=== PATIENT | female | born 1985 | race Caucasian/White ===

== ENCOUNTER 2017-02-28 08:58 | Emergency (ER) | payer BC ==
[2017-02-28 09:14] VITALS: BP 120/70
--- NOTE | 2017-02-28 09:47 | ED ---
Upper Extremity Pain - HPI Summary HPI Summary: 31 yr old female with left wrist pain. No injury, no falls. Pain is over the lateral volar wrist and goes into the left base of thumb. Denies fever, chills redness. She has had pain for over a week. She denies other complaints. Pain 6/10 and worse with pincher grasp with radiation to the thumb and 2nd digit. - History of Current Complaint Chief Complaint: UCUpperExtremity Stated Complaint: LEFT WRIST Time Seen by Provider: 02/28/17 09:05 Hx Last Menstrual Period: unknown, irregular cycle - Allergies/Home Medications Allergies/Adverse Reactions: Allergies Allergy/AdvReac Type Severity Reaction Status Date / Time Aspirin Allergy Severe Bleeding Verified 02/28/17 09:14 Penicillin G Allergy Intermediate Bleeding Verified 02/28/17 09:14 Mustard Seed Allergy Tongue Verified 02/28/17 09:14 Swelling, Itching Pineapple Allergy tongue Verified 02/28/17 09:14 Swelling, Itching Promethazine [From Phenergan] AdvReac Severe Hallucinati Verified 02/28/17 09:14 ons Cold Allergy Hives Uncoded 02/28/17 09:14 Home Medications: Home Medications Escitalopram Oxalate [Lexapro 10 mg] 10 mg PO DAILY 02/28/17 [History Confirmed 02/28/17] PMH/Surg Hx/FS Hx/Imm Hx Psychiatric History: Reports: Hx Anxiety - Surgical History Surgery Procedure, Year, and Place: T&A, 07/14/13 polypectomy, D&C x2 Infectious Disease History: No Infectious Disease History: Denies: Traveled Outside the [place] in Last 30 Days - Family History Known Family History: Positive: None, Hypertension Negative: Unknown, Cardiac Disease, Diabetes - Social History Occupation: Unemployed Alcohol Use: Rare Substance Use Type: Reports: None Smoking Status (MU): Never Smoked Tobacco Review of Systems Constitutional: Negative Positive: Other - left wrist pain All Other Systems Reviewed And Are Negative: Yes Physical Exam Triage Information Reviewed: Yes Vital Signs On Initial Exam: Initial Vitals Temp Pulse Resp BP Pulse Ox 97.9 F 72 18 120/70 100 02/28/17 09:08 02/28/17 09:08 02/28/17 09:08 02/28/17 09:08 02/28/17 09:08 Vital Signs Reviewed: Yes Appearance: Positive: Well-Appearing, No Pain Distress Skin: Positive: Warm, Skin Color Reflects Adequate Perfusion Head/Face: Positive: Normal Head/Face Inspection Eyes: Positive: EOMI, ROMÁN ENT: Positive: Normal ENT inspection Neck: Positive: Nontender Respiratory/Lung Sounds: Positive: Clear to Auscultation, Breath Sounds Present Cardiovascular: Positive: RRR. Negative: Murmur Abdomen Description: Positive: Nontender Musculoskeletal: Positive: Strength/ROM Intact, Other - mild STS swelling/ hardness lateral volar wrist like a ganglion. No erythema. No bruise, no effuison. No snuff box tenderness. Neuro vasc intact left hand all digits. Neurological: Positive: Sensory/Motor Intact, Alert, Oriented to Person Place, Time, CN Intact II-III Diagnostics - Vital Signs Vital Signs Temp Pulse Resp BP Pulse Ox 02/28/17 09:08 97.9 F 72 18 120/70 100 - Laboratory Lab Statement: Any lab studies that have been ordered have been reviewed, and results considered in the medical decision making process. - Radiology wrist left Xray Interpretation: No Acute Changes Radiology Interpretation Completed By: Radiologist Course/Dx - Course Course Of Treatment: 31 yr old with left wrist pain. No trauma. Will give thumb spika by nurses. Fu with Hand - Diagnoses Provider Diagnoses: Wrist pain, left Discharge - Discharge Plan Condition: Good Disposition: HOME Patient Education Materials: Wrist Injury (ED) Referrals: Sherri Frye [Primary Care Provider] - 3 Days
--- NOTE | 2017-02-28 10:09 | RAD ---
Indication: Left wrist pain 3 views of the wrist demonstrates no fracture. No other bone or joint abnormality is identified. IMPRESSION: NO FRACTURE OF THE WRIST IS NOTED.
== END 2017-02-28 10:32 | disposition home or self-care (01) ==
LOC: UCCORT 08:58
DX: M25.532 Pain in left wrist (principal); Z88.6 Allergy status to analgesic agent; Z88.0 Allergy status to penicillin; F41.9 Anxiety disorder, unspecified
CPT/HCPCS: 99212; G0463

== ENCOUNTER 2017-05-11 06:04 | Day surgery (SDC) | payer BC, MEDICAID ==
[~2017-05-11 06:04] MED LIST: Buffered Lidocaine 0.9% SYRIN* 5 ML/SYR SYRINGE INTRADERM ONE
[2017-05-11] MEDS ORDERED: Clindamycin 900 MG IVPREMIX(* 900 MG/50 ML SDV IV ONE ×2 (06:50)
[2017-05-11] MEDS ORDERED: Lidocaine 1% INJ* 10 MG/ML 30 ML SDV ONE (07:09)
[2017-05-11] MEDS ORDERED: Bupivacaine 0.25% SDV* 30 ML ONE ×2 (07:09)
[2017-05-11] MEDS ORDERED: fentaNYL* 50 MCG/ML 2 ML VIAL (100 MCG VIAL) ONE ×6 (07:14→09:26)
[2017-05-11] MEDS ORDERED: Midazolam* 1 MG/ML 2 ML VIAL (2 MG) ONE ×2 (07:14)
[2017-05-11] MEDS ORDERED: Dexamethasone IV* 4 MG/ML 1 ML (4 MG) ONE ×2 (08:14)
[2017-05-11] MEDS ORDERED: Famotidine IV* 10 MG/ML 2 ML (20 mg) ONE ×2 (08:14)
[2017-05-11] MEDS ORDERED: Ondansetron INJ* 2 MG/ML VIAL ONE ×2 (08:14)
[2017-05-11] MEDS ORDERED: Propofol* 10 MG/ML 20 ML BTL IV PUSH ONE ×2 (08:14)
[2017-05-11] MEDS ORDERED: Ketorolac INJ* 30 MG/ML 1 ML VIAL ONE ×2 (08:14)
[2017-05-11] MEDS ORDERED: Acetaminophen TAB* 325 MG PO PRN (08:29)
[2017-05-11] MEDS ORDERED: Levalbuterol 0.63MG/3ML NEB* UNIT OF USE INH PRN (08:29)
[2017-05-11] MEDS ORDERED: diPHENhydraMINE IV* 50 MG/ML 1 ml VIAL (BENADRYL) IV PRN (08:29)
[2017-05-11] MEDS ORDERED: Naloxone* 0.4 MG/ML 1 ML VIAL IV PRN (08:29)
[2017-05-11] MEDS ORDERED: Desflurane* 240 ML INH ONE (08:37)
[2017-05-11] MEDS ORDERED: Labetalol IV* 5 MG/ML 20 ML VIAL ONE ×2 (08:51)
[2017-05-11] MEDS: fentaNYL* 50 MCG/ML 2 ML VIAL (100 MCG VIAL) IV PRN ×4 (09:27→09:45)
[2017-05-11] MEDS ORDERED: HYDROcodone/ACETAMIN 5-325 MG* 1 TAB ONE ×2 (09:38)
[2017-05-11] MEDS ORDERED: DiMENhydriNATE IV* 50 MG/ML VIAL ONE (10:10)
[2017-05-11] MEDS ORDERED: diPHENhydraMINE IV* 50 MG/ML 1 ml VIAL (BENADRYL) ONE ×2 (10:17)
[2017-05-11 11:26] VITALS: BP 144/68
--- NOTE | 2017-05-12 14:33 | OP ---
DATE OF OPERATION: 05/11/17 - [facility] DATE OF : 89 SURGEON: Yunier Mata MD. BARGE CAPTAIN: ALVERTO Goldsmith. An assistant women's soccer coach was needed for the entirety of the procedure to aid in positioning of the arm and retraction. ANESTHESIOLOGIST: Dr. Ma. ANESTHESIA: General. PRE-OP DIAGNOSES: 1. Left carpal tunnel syndrome. 2. Left cubital tunnel syndrome. 3. Left de Quervain's tendonitis. POST-OP DIAGNOSES: 1. Left carpal tunnel syndrome. 2. Left cubital tunnel syndrome. 3. Left de Quervain's tendonitis. OPERATIVE PROCEDURE: 1. Left carpal tunnel release. 2. Left de Quervain's release. 3. Left in situ cubital tunnel release. INDICATIONS: Leisa is having extensive numbness and tingling. The symptoms were progressing. Additionally, she was having very severe de Quervain's disease. It had gotten better after an injection, but then recurred. She wanted to do a de Quervain's release. We had talked at length about whether or not to do the nerve releases at the same time. She said the numbness and tingling were just being progressive and she wanted to see if she could get some relief and improvement in the neurogenic-type pain. We talked about risks and benefits. She had wanted to proceed. ESTIMATED BLOOD LOSS: 5 mL. COMPLICATIONS: None. FINDINGS: As expected. DESCRIPTION OF PROCEDURE: Leisa was seen in the preoperative holding area. The correct site, side and procedure were identified. We came back to the operating room and the arm was prepped and draped in the usual fashion. A time- out was performed. I exsanguinated the arm with the Esmarch and the tourniquet was inflated to 250 mmHg. I made a 2 to 3 cm incision in the standard location for an open carpal tunnel release. Dissection was carried down through the subcutaneous tissue and the palmar fascia. The transverse carpal ligament was released just off the radial aspect of the hook of the hamate. Once the release was completed distally, I came proximally and placed a Nasrin retractor and under direct visualization, released the remainder of the transverse carpal ligament and distal antebrachial fascia to a level of several centimeters proximal to the wrist flexion crease. At this point, the release was complete and there was absolutely no compression on the nerves, so we irrigated out the wound. The skin was closed with 4-0 nylon suture. I then made a 2 cm transverse incision just proximal to the radial styloid. Dissection was carried down and the soft tissue was released off the tendon sheath bluntly. Ragnell retractors were placed. The first dorsal compartment tendon sheath was released just opposite its dorsal margin. No accessory compartment was present. The release was extended proximally and distally. It was very tight. Once the release was complete and there was no compression on the tendons, I irrigated out the wound. The skin was closed with 4-0 Monocryl suture. I then made a curvilinear incision centered over the Walker ligament on the posteromedial aspect of the elbow. Dissection was carried down through the subcutaneous tissue taking care to preserve the medial antebrachial cutaneous nerve. On the proximal aspect of the cubital tunnel, I exposed the ulnar nerve. An appendiceal retractor was placed proximally and under direct visualization, the soft tissue overlying the ulnar nerve was released past the arcade of [place]. I then came distally and released the Walker ligament and released the superficial FCU fascia. I split the two ends of the FCU and released the deep subfascial layer of the FCU. The nerve at this point was nicely compressed throughout the entirety of its course in the cubital tunnel. There was no subluxation of the nerve noted. Everything was looking good, so we obtained hemostasis with the Bovie. The subcutaneous tissue was reapproximated with 3-0 Vicryl suture. Skin was closed with 4-0 Monocryl suture and Steri-Strips. All of the operative areas were infiltrated with 0.25% plain Marcaine. The wounds were dressed with Xeroform, 4x4's, sterile Webril, and ABD at the elbow and Winston bandages. She was woken up and taken to the recovery room in stable condition. [id number]/[facility] #: [id number] LEIA
== END 2017-05-11 11:29 | disposition home or self-care (01) ==
LOC: OR 06:04
PROVIDERS: ATTEND Orthopaedic Surgery Hand Surgery
DX: G56.02 Carpal tunnel syndrome, left upper limb (principal); G56.22 Lesion of ulnar nerve, left upper limb; M65.4 Radial styloid tenosynovitis [de Quervain]; F41.8 Other specified anxiety disorders; Z68.41 Body mass index [BMI] 40.0-44.9, adult
CPT/HCPCS: 81025; J1100; J1200; J1240; J1885; J2250; J2405; J2704; J3010

== ENCOUNTER 2017-09-02 17:09 | Emergency (ER) | payer MEDICAID, OTHER ==
[2017-09-02 17:48] VITALS: BP 131/82
--- NOTE | 2017-09-02 18:25 | UC ---
Lower Extremity/Ankle HPI - HPI Summary HPI Summary: Pt c/o right lateral mid foot pain s/p walking on uneven pavement at home and inverting right foot 4 days ago. - History of Current Complaint Hx Obtained From: Patient Hx Last Menstrual Period: 05/07/17-irregular menses d/t Complex endometrial hyperplasia ?: No Onset/Duration: Sudden Onset, Lasting Days, Still Present Severity Initially: Moderate Severity Currently: Moderate Pain Intensity: 5 Aggravating Factor(s): Ambulation Alleviating Factor(s): Rest Able to Bear Weight: Yes - Risk Factors Gout Risk Factors: Obesity DVT Risk Factors: Negative Septic Arthritis Risk Factor: Negative <Pia Nova NP - Last Filed: 09/02/17 18:51> <Tamir Douglas - Last Filed: 09/02/17 20:42> - History of Current Complaint Chief Complaint: UCLowerExtremity Stated Complaint: RIGHT ANKLE INJURY Time Seen by Provider: 09/02/17 17:54 - Allergies/Home Medications Allergies/Adverse Reactions: Allergies Allergy/AdvReac Type Severity Reaction Status Date / Time aspirin Allergy Severe Bleeding Verified 09/02/17 17:42 Penicillins Allergy Severe Bleeding Verified 09/02/17 17:42 pineapple Allergy Severe tongue Verified 09/02/17 17:42 swelling, itching promethazine Allergy Severe Hallucinati Verified 09/02/17 17:42 ons Cold Allergy Severe Hives Uncoded 09/02/17 17:42 mustard seed Allergy Severe tongue Uncoded 09/02/17 17:42 swelling, itching PMH/Surg Hx/FS Hx/Imm Hx Previously Healthy: Yes - Surgical History Surgical History: Yes Surgery Procedure, Year, and Place: T&A, 07/14/13 polypectomy, D&C x3. LEFT wrist /LEFT elbow/LEFT carpal tunnel - Family History Known Family History: Positive: None, Hypertension Negative: Unknown, Cardiac Disease, Diabetes - Social History Occupation: Employed Full-time Lives: With Family Alcohol Use: Rare Substance Use Type: None Smoking Status (MU): Never Smoked Tobacco Have You Smoked in the Last Year: No Household Exposure Type: Cigarettes - Immunization History Most Recent Influenza Vaccination: Not the 2014/2015 Season <Pia Nova NP - Last Filed: 09/02/17 18:51> Review of Systems Constitutional: Negative Skin: Negative Eyes: Negative ENT: Negative Respiratory: Negative Cardiovascular: Negative Gastrointestinal: Negative Genitourinary: Negative Motor: Negative Neurovascular: Negative Musculoskeletal: Arthralgia - right lateral mid foot Neurological: Negative Psychological: Negative Is Patient Immunocompromised?: No All Other Systems Reviewed And Are Negative: Yes <Pia Nova NP Last Filed: 09/02/17 18:51> Physical Exam Triage Information Reviewed: Yes Appearance: Well-Appearing Vital Signs: Initial Vital Signs Temp 98.1 F 09/02/17 17:43 Pulse 82 09/02/17 17:43 Resp 16 09/02/17 17:43 BP 131/82 09/02/17 17:43 Pulse Ox 98 09/02/17 17:43 Vital Signs Reviewed: Yes Eye Exam: Normal ENT Exam: Normal ENT: Positive: Hearing grossly normal Respiratory Exam: Normal Respiratory: Positive: No respiratory distress Musculoskeletal: Positive: Other: - c/o pain with light touch to right mid lateral foot Neurological Exam: Normal Psychological Exam: Normal Skin Exam: Normal <Pia Nova NP - Last Filed: 09/02/17 18:51> Vital Signs: Initial Vital Signs Temp 98.1 F 09/02/17 17:43 Pulse 82 09/02/17 17:43 Resp 16 09/02/17 17:43 BP 131/82 09/02/17 17:43 Pulse Ox 98 09/02/17 17:43 <Tamir Douglas - Last Filed: 09/02/17 20:42> Diagnostics - Radiology No standard instances Radiology Interpretation Completed By: Radiologist - IMPRESSION: NO ACUTE FRACTURE. <Pia Nvoa NP Last Filed: 09/02/17 18:51> Lower Extremity Course/Dx - Differential Dx/Diagnosis Differential Diagnosis/HQI/PQRI: Fracture (Closed), Sprain, Strain Provider Diagnoses: right ankle sprain. right foot contusion <Pia Nova NP Last Filed: 09/02/17 18:51> Discharge - Sign-Out/Discharge Documenting (check all that apply): Discharge/Admit/Transfer - Billing Disposition and Condition Condition: STABLE Disposition: Home <Pia Nova NP Last Filed: 09/02/17 18:51> - Billing Disposition and Condition Condition: STABLE Disposition: Home <Tamir Douglas - Last Filed: 09/02/17 20:42> - Discharge Plan Condition: Stable Disposition: HOME Patient Education Materials: Ankle Sprain (ED), Foot Contusion (ED) Referrals: Dari Cid PA [Primary Care Provider] - If Needed Leonid Montero MD [Medical Doctor] - If Needed Additional Instructions: Per institutional requirements, I have reviewed the chart, however, I was not consulted specifically or made aware of this patient by the above midlevel provider. I did not personally evaluate, interact with , or disposition this patient.
--- NOTE | 2017-09-02 18:41 | RAD ---
INDICATION: Right ankle pain COMPARISON: None TECHNIQUE: AP, lateral, and oblique views were obtained. FINDINGS: There is no acute fracture or dislocation. There is lateral soft tissue swelling. There is an Achilles calcaneal spur. IMPRESSION: NO ACUTE FRACTURE.
== END 2017-09-02 18:53 | disposition home or self-care (01) ==
LOC: UCCORT 17:09
DX: S93.401A Sprain of unspecified ligament of right ankle, initial encounter (principal); S90.31XA Contusion of right foot, initial encounter; X50.0XXA Overexertion from strenuous movement or load, initial encounter; Y93.01 Activity, walking, marching and hiking; Y92.009 Unspecified place in unspecified non-institutional (private) residence as the place of occurrence of the external cause; Z88.0 Allergy status to penicillin; Z88.8 Allergy status to other drugs, medicaments and biological substances
CPT/HCPCS: 99211; G0463

== ENCOUNTER 2018-05-11 18:04 | Emergency (ER) | payer OTHER ==
[2018-05-11 19:10] VITALS: BP 123/81
--- NOTE | 2018-05-11 19:43 | UC ---
Respiratory Complaint HPI - HPI Summary HPI Summary: 32 yo female with the onset of f/c, nasal congestion,post nasal drip , laryngitis and cough yesterday. Some fatigue and myalgias no cp or sob - History of Current Complaint Chief Complaint: UCGeneralIllness Stated Complaint: SORE THROAT,COUGH,FEVER,BODY ACHES Time Seen by Provider: 05/11/18 18:17 Hx Obtained From: Patient Hx Last Menstrual Period: irregular Onset/Duration: Gradual Onset Severity Initially: Moderate Severity Currently: Moderate Pain Intensity: 7 Pain Scale Used: 0-10 Numeric Character: Cough: Nonproductive Aggravating Factors: Nothing Alleviating Factors: Nothing Associated Signs And Symptoms: Positive: Edema - Allergies/Home Medications Allergies/Adverse Reactions: Allergies Allergy/AdvReac Type Severity Reaction Status Date / Time aspirin Allergy Severe Bleeding Verified 05/11/18 19:07 Penicillins Allergy Severe Bleeding Verified 05/11/18 19:07 pineapple Allergy Severe tongue Verified 05/11/18 19:07 swelling, itching promethazine Allergy Severe Hallucinati Verified 05/11/18 19:07 ons Cold Allergy Severe Hives Uncoded 05/11/18 19:07 mustard seed Allergy Severe tongue Uncoded 05/11/18 19:07 swelling, itching Home Medications: Home Medications Albuterol HFA INHALER* [Ventolin HFA Inhaler*] 1 - 2 puff INH Q4H PRN 05/11/18 [ History Confirmed 05/11/18] PMH/Surg Hx/FS Hx/Imm Hx Previously Healthy: Yes - Surgical History Surgical History: Yes Surgery Procedure, Year, and Place: T&A, 07/14/13 polypectomy, D&C x3. LEFT wrist /LEFT elbow/LEFT carpal tunnel - Family History Known Family History: Positive: None, Hypertension Negative: Unknown, Cardiac Disease, Diabetes - Social History Alcohol Use: Rare Substance Use Type: None Smoking Status (MU): Never Smoked Tobacco Have You Smoked in the Last Year: No Household Exposure Type: Cigarettes - Immunization History Most Recent Influenza Vaccination: Not the Season Review of Systems All Other Systems Reviewed And Are Negative: Yes Constitutional: Positive: Fever, Chills, Fatigue Skin: Positive: Negative Eyes: Positive: Negative ENT: Positive: Sore Throat, Nasal Discharge, Sinus Congestion, Sinus Pain/ Tenderness Respiratory: Positive: Cough Cardiovascular: Positive: Negative Gastrointestinal: Positive: Negative Genitourinary: Positive: Negative Motor: Positive: Negative Neurovascular: Positive: Negative Musculoskeletal: Positive: Myalgia Neurological: Positive: Headache Psychological: Positive: Negative Physical Exam Triage Information Reviewed: Yes Appearance: Well-Appearing, No Pain Distress, Well-Nourished Vital Signs: Initial Vital Signs Temp 97.3 F 05/11/18 19:06 Pulse 88 05/11/18 19:06 Resp 17 05/11/18 19:06 BP 123/81 05/11/18 19:06 Pulse Ox 99 05/11/18 19:06 Vital Signs Reviewed: Yes Eyes: Positive: Conjunctiva Clear ENT: Positive: Hearing grossly normal, Nasal congestion, Nasal drainage, TMs normal, Hoarse voice, Uvula midline. Negative: Tonsillar swelling, Tonsillar exudate, Trismus, Muffled voice, Sinus tenderness Neck: Positive: Supple, Nontender, No Lymphadenopathy Respiratory: Positive: Lungs clear, Normal breath sounds, No respiratory distress, No accessory muscle use Cardiovascular: Positive: RRR Musculoskeletal: Positive: ROM Intact, No Edema Neurological: Positive: Alert Psychological Exam: Normal Skin Exam: Normal Respiratory Course/Dx - Course Course Of Treatment: flu negative - Differential Dx/Diagnosis Provider Diagnosis: Viral URI with cough Discharge - Sign-Out/Discharge Documenting (check all that apply): Patient Departure All imaging exams completed and their final reports reviewed: No Studies - Discharge Plan Condition: Stable Disposition: HOME Prescriptions: Benzonatate CAP* [Tessalon CAP*] 100 - 200 mg PO TID PRN #28 cap PRN Reason: Cough Fluticasone NASAL SPRAY 50MCG* [Flonase NASAL SPRAY 50MCG*] 2 spray BOTH NARES BID #1 btl Patient Education Materials: Upper Respiratory Infection (ED) Forms: *Work Release Referrals: Dari Cid PA [Primary Care Provider] - 3 Days (if not better) Additional Instructions: flu negative - Billing Disposition and Condition Condition: STABLE Disposition: Home
[2018-05-11 19:49] LABS: Influenza A Molecular NEGATIVE (Negative); Influenza B Molecular NEGATIVE (Negative)
== END 2018-05-11 20:01 | disposition home or self-care (01) ==
LOC: UCCORT 18:04
DX: J06.9 Acute upper respiratory infection, unspecified (principal); R05 Cough; Z88.8 Allergy status to other drugs, medicaments and biological substances; Z88.0 Allergy status to penicillin; Z91.018 Allergy to other foods; Z91.09 Other allergy status, other than to drugs and biological substances
CPT/HCPCS: 99212; G0463

== ENCOUNTER 2018-05-21 15:17 | Emergency (ER) | payer OTHER ==
--- OUTSIDE RECORDS SUMMARY | 2018-05-21 15:43 | XMS REPORT | Continuity of Care Document ---
:1985 External Reference #:[id number] Author Name Dari Cid PA Address [address] [place] [address] Care Team Providers Name Role Phone Giovani DO Davin Care Team Information Practicing Md Anesthesiologist Unavailable Payers Date Identification Numbers Payment Provider Subscriber Policy Number: [id number] Jorge Pollard Leisa Blackburn PayID: [id number] [address] [place] [address] Advance Directives Description No Information Available Problems Date Description Provider Status Onset: 05/22/2012 Allergic rhinitis Sherri Valdivia, BEADWORKER Active Onset: 05/22/2012 Depressive disorder Sherri Valdivia, BEADWORKER Active Onset: 11/06/2010 Obesity Sherri Valdivia BEADWORKER Active Family History Date Family Member(s) Observation Comments Father Cancer, Skin BCC Mother Non Contributory Mother Thyroid Disease First Sister Non Contributory Paternal Grandfather Heart Disease Paternal Grandfather Stroke Paternal Grandmother Glaucoma Paternal Grandmother Cancer, Ovarian Maternal Grandfather Cancer, Prostate Maternal Grandfather Leukemia Maternal Grandfather Diabetes, Adult Non Insulin Dependent Diabetes. Maternal Grandmother Cancer, Breast Alive in 90s, dx in 40s?. Maternal Grandmother Dementia Paternal Uncles Mental Illness Social History Type Date Description Comments Sex Unknown Education Highest level completed, 2 years of college Marital Status Same sex marriage. Occupation [employer] Hobbies Softball Hobbies Horseback Riding Tobacco Use Start: Unknown Never Smoked Cigarettes ETOH Use Denies alcohol use Recreational Drug Use Never Used Drugs Currently Active Patient is currently with sexually active Allergies, Adverse Reactions, Alerts Date Description Reaction Status Severity Comments 06/07/2008 Mustard Active 06/07/2008 Pineapple Active 05/12/2014 Penicillin Active 05/15/2014 Aspirin BLEEDING Active 05/15/2014 Cold HIVES IN AREA OF COLD JOSE Active 07/28/2017 Phenergan Holusination Active Severe Medications Medication Date Status Form Strength Qnty SIG Indications Ordering Provider Azithromycin 05/14 Active Tablets 250mg 6tabs 2 tablets J20.9 [place] by mouth Davin, on day 1 DO then 1 tablet on days 2-5 Prednisone 05/14 Active Tablets 20mg 10tab 2 tablets J20.9 Mat[place] s by mouth Davin, for 5 days DO Levocetirizine 04/05 Active Tablets 5mg 30tab 1 by mouth L50.2 [place], Dihydrochloride s every day DO Davin Ventolin HFA 04/05 Active Aerosol 108(90Bas 8gm 2 puffs J45.20 Matute e) every 4-6 Davin, mcg/Act hours as DO needed for cough, wheezing, shortness of breath Flovent HFA 04/05 Active Aerosol 44mcg/Act 10.60 2 puffs J45.20 [place] 0gm twice Davin, daily DO Tylenol 00 Active Tablets 325mg 2 tabs 4 Unknown /0000 times daily as needed Venlafaxine HCL 00 Active Caps ER 75mg 1 by mouth Unknown ER /0000 24HR every day Trazodone HCL 00 Active Tablets 50mg 1 by mouth Unknown /0000 every night at bedtime Flovent Diskus 04/05 Hx Aerosol 100mcg/Bl 28uni 1 puff J45.20 Matute ist ts twice Davin, - daily DO 04/05 Sulfacetamide 10/29 Hx Solution 10-0.23% 5ml 2 drops H10.31 Matute, Sodium/Prednis into RIGHT Dav[place]ica Sodium - eye three DO Phosphate 04/05 times daily for 7 days Naproxen 07/28 Hx Tablets 500mg 30tab 1 tablet M25.571 [place] s by mouth Davin, - twice DO 04/05 daily with food Ondansetron HCL 09/06 Hx Tablets 4mg 12tab 3 Times A s Day as - Needed as 07/07 needed for Nausea Naproxen Sodium 01/23 Hx Tablets 550mg 60tab 1 by mouth S92.535A s every 12 a, - hours for Sherri, 07/07 2 weeks then as needed No Active 05/15 Hx Unknown - 05/24 Naproxen Sodium 11/25 Hx Tablets 550mg 60tab one po Digiovann s Q12H prn a, - for pain, Sherri, 05/15 take with food Cetirizine HCL 11/25 Hx Tablets 10mg one po Digiovan daily at a, - hs prn Sherri, 05/15 Wellbutrin XL 04/18 Hx Tablets ER 150mg 30tab 1 daily 24HR s a, - Sherri, 05/15 Junel Fe 1.5/30 00/00 Hx Tablets 1.5/30 Unknown /0000 - 05/15 Nasonex 00 Hx Suspension 50mcg/Act 1unit 1 sprays Unknown /0000 s each - nostril 05/15 Immunizations CPT Code Status Date Vaccine Reaction Lot # [id number] Given 12/28/2012 HPV Vaccine (Gardasil) 3 Dose Schedule 49018 Given 12/17/2010 Tdap (Adacel) Ages 7 And Above Only BOOSTRIX 90344 Given 10/24/2005 Menactra/Menveo Meningococcal Vaccine 48008 Given 12/17/2001 DTaP Immunization 7 Yrs & Younger 21003 Given 10/26/1999 Hepatitis B Vac Ped/Adolescent 3 Dose Schedule 17880 Given 05/31/1999 Hepatitis B Vac Ped/Adolescent 3 Dose Schedule 20305 Given 05/01/1999 Hepatitis B Vac Ped/Adolescent 3 Dose Schedule 34080 Given 09/12/1992 Oral Poliovirus Immunization 37058 Given 09/12/1992 MMR Virus Immunization 12632 Given 09/12/1992 DTaP Immunization 7 Yrs & Younger 91369 Given 09/12/1992 Hib HbOC Conjugate 4 Dose Schedule 96351 Given 02/18/1989 Oral Poliovirus Immunization 29987 Given 02/18/1989 DTaP Immunization 7 Yrs & Younger 48367 Given 02/18/1989 Hib HbOC Conjugate 4 Dose Schedule 30421 Given 11/19/1988 MMR Virus Immunization 41640 Given 1987 Oral Poliovirus Immunization 07852 Given 1987 DTaP Immunization 7 Yrs & Younger 18147 Given 1987 Oral Poliovirus Immunization 54879 Refused 04/05/2018 Influenza Vac, Quadrivalent, Split, 0.5mL Dosage, Im Use Vital Signs Date Vital Result Comment 05/14/2018 8:58am Body Temperature 97.7 F Apap This Am Weight 248.00 lb Heart Rate 72 /min BP Systolic 130 mmHg BP Diastolic 72 mmHg Respiratory Rate 18 /min Height 63.2 inches 5'3.20" O2 % BldC Oximetry 9899 % BMI (Body Mass Index) 43.6 kg/m2 04/05/2018 4:11pm Body Temperature 97.6 F Weight 250.00 lb Heart Rate 84 /min BP Systolic 122 mmHg BP Diastolic 78 mmHg Respiratory Rate 18 /min Height 63.2 inches 5'3.20" O2 % BldC Oximetry 99 % BMI (Body Mass Index) 44.0 kg/m2 10/29/2017 10:37am Body Temperature 98.2 F Weight 250.00 lb Heart Rate 70 /min BP Systolic 124 mmHg BP Diastolic 78 mmHg Respiratory Rate 18 /min Height 63.2 inches 5'3.20" BMI (Body Mass Index) 44.0 kg/m2 07/28/2017 8:45am Heart Rate 76 /min BP Systolic 118 mmHg L/LG BP Diastolic 78 mmHg L/LG Respiratory Rate 20 /min Height 63.2 inches 5'3.20" 01/23/2015 8:37am Weight 230.00 lb Heart Rate 74 /min BP Systolic 116 mmHg BP Diastolic 68 mmHg Respiratory Rate 18 /min Height 62.74 inches 5'2.74" 05/21 BMI (Body Mass Index) 41.1 kg/m2 05/24/2014 3:12pm Weight 227.31 lb Heart Rate 72 /min BP Systolic 122 mmHg BP Diastolic 70 mmHg Respiratory Rate 18 /min Height 62.74 inches 5'2.74" 05/21 BMI (Body Mass Index) 40.6 kg/m2 05/15/2014 3:26pm Weight 224.38 lb Heart Rate 74 /min BP Systolic 126 mmHg BP Diastolic 74 mmHg Respiratory Rate 18 /min Height 62.74 inches 5'2.74" 05/21 BMI (Body Mass Index) 40.1 kg/m2 Results Test Date Facility Test Result H/L Range Note Hemoglobin A1c 09/02/2017 [facility] Hemoglobin A1c 6.0 % High 4.1-5.9 Estimated Average Glucose Calc 126 mg/dL 71-140 Comprehensive Met Panel-[facility]G 09/02/2017 [facility] Sodium 141 mmol/L 135- 146 1 Potassium 4.0 mmol/L 3.5-5.2 Chloride# 105 mmol/L 97-110 2 Carbon Dioxide 24 mmol/L 24-34 Glucose 125 mg/dL High 70-105 BUN 19 mg/dL 6-26 Creatinine 0.8 mg/dL 0.5-1.4 Calcium 8.9 mg/dL 8.5-10.2 Total Protein 6.9 g/dL 6.0-8.0 Albumin 4.1 g/dL 3.6-4.9 Globulin 2.8 g/dL 2.0-3.5 A/G Ratio 1.5 Ratio 1.0-2.2 Total Bilirubin 0.5 mg/dL 0.1-1.3 Alkaline Phosphatase 59 U/L 24-140 Alt 56 U/L High 3-42 Ast 32 U/L 8-42 Erica Egfr >60 >60 3 Non Erica Egfr >60 >60 4 Anion Gap 12 mmol/L 5-15 5 Laboratory test finding 09/02/2017 [facility] Vitamin D 25 Hydroxy 20 ng/mL Low 30-100 6 Laboratory test finding 09/02/2017 [facility] Ebv Early Ag Igg POSITIVE ( Neg) 7 Ebv Nuclear Ag Igg POSITIVE (Neg) 8 Ebv Vca Igm NEGATIVE (Neg) 9 Ebv Vca Igg POSITIVE (Neg) 10 CBC with Auto Diff-fcmg 07/28/2017 [facility] WBC 9.4 K/uL 4.1-11.0 RBC 4.86 M/uL 4.00-5.40 Hemoglobin 14.5 gm/dL 12.0-16.0 Hematocrit 42.1 % 36.0-47.0 MCV 86.6 fL 80.0-97.0 MCH 29.9 pg 27.0-32.0 MCHC 34.6 g/dL 32.0-36.0 RDW 13.3 % 11.5-14.5 PLT Count 191 K/ul 140-400 MPV 10.5 FL 7.1-10.7 Neutrophil 63.1 % 35.0-75.0 Lymphocyte 27.5 % 16.0-52.0 Monocyte 5.7 % 2.0-10.0 Eosinophil 3.4 % 0.0-5.0 Basophil 0.3 % 0.0-4.0 Abs Neutrophils 5.9 K/uL 2.1-8.0 Abs Lymphocytes 2.6 K/uL 0.8-5.5 Abs Monocytes 0.5 K/uL 0.1-1.0 Abs Eosinophils 0.3 K/uL 0.0-0.5 Abs Basophils 0.0 K/uL 0.0-0.3 Comprehensive Met Panel-[facility]G 07/28/2017 [facility] Sodium 139 mmol/L 135- 146 11 Potassium 4.2 mmol/L 3.5-5.2 Chloride# 104 mmol/L 97-110 12 Carbon Dioxide 26 mmol/L 24-34 Glucose 129 mg/dL High 70-105 BUN 17 mg/dL 6-26 Creatinine 0.7 mg/dL 0.5-1.4 Calcium 9.5 mg/dL 8.5-10.2 Total Protein 7.5 g/dL 6.0-8.0 Albumin 4.4 g/dL 3.6-4.9 Globulin 3.1 g/dL 2.0-3.5 A/G Ratio 1.4 Ratio 1.0-2.2 Total Bilirubin 0.4 mg/dL 0.1-1.3 Alkaline Phosphatase 67 U/L 24-140 Alt 74 U/L High 3-42 Ast 40 U/L 8-42 Erica Egfr >60 >60 13 Non Erica Egfr >60 >60 14 Anion Gap 9 mmol/L 5-15 15 Lipid 07/28/2017 [facility] Cholesterol 168 mg/dL 50-199 Triglycerides 171 mg/dL 30-200 HDL 37 mg/dL 35-85 16 Chol/ HDL Ratio 4.6 ratio 3.7-5.6 VLDL 34 mg/dL High 2-29 LDL (Calc) 97 mg/dL 20-99 17 Laboratory test finding 07/28/2017 [facility] TSH 2.51 uIU/mL 0.35-4.94 Vitamin D 25 Hydroxy 21 ng/mL Low 30-100 18 Vitamin B12 725 pg/mL 180-914 Uric Acid 6.8 mg/dL 2.6-7.6 Hgb Bld-mCnc 09/06/2016 N2N/CCD Import Hgb Bld-mCnc 15.0 11.6-15.8 Hct VFr Bld Auto 09/06/2016 N2N/CCD Import Hct VFr Bld Auto 43.1 36.0- 46.1 Eosinophil/leuk 09/06/2016 N2N/CCD Import Eosinophil/leuk 1.0 0.0-6.6 NFr Bld Auto NFr Bld Auto Eosinophil # Bld 09/06/2016 N2N/CCD Import Eosinophil # Bld 0.12 0.0- 0.5 Auto Auto Basophils/leuk 09/06/2016 N2N/CCD Import Basophils/leuk 0.1 0.0-1.1 NFr Bld Auto NFr Bld Auto Basophils 09/06/2016 N2N/CCD Import Basophils 0.01 0.0-0.1 [#/volume] in [#/volume] in Blood by Blood by Automated count Automated count Lipase SerPl-cCnc 09/06/2016 N2N/CCD Import Lipase 105 73-393 SerPl-cCnc Laboratory test 09/06/2016 [facility] Magnesium 1.9 mg/ dL N 1.8-2.4 19 finding (315)- - Lipase 105 U/L N 73-393 HCG,Serum (Qualitative) NEGATIVE (Negative) 20 Sodium 09/06/2016 N2N/CCD Import Sodium 139 136-145 SerPl-sCnc SerPl-sCnc Prot SerPl-mCnc 09/06/2016 N2N/CCD Import Prot SerPl-mCnc 8.1 6.4-8.2 Potassium 09/06/2016 N2N/CCD Import Potassium 4.1 3.5-5.1 SerPl-sCnc SerPl-sCnc Glucose 09/06/2016 N2N/CCD Import Glucose 111 High 74-106 [Mass/volume] in [Mass/volume] Serum or Plasma in Serum or Plasma Globulin Ser 09/06/2016 N2N/CCD Import Globulin Ser 4.3 1.9-4.3 Calc-mCnc Calc-mCnc Creat SerPl-mCnc 09/06/2016 N2N/CCD Import Creat 0.8 0.6-1.3 SerPl-mCnc Chloride 09/06/2016 N2N/CCD Import Chloride 106 98-107 SerPl-sCnc SerPl-sCnc Calcium 09/06/2016 N2N/CCD Import Calcium 8.6 8.5-10.1 SerPl-mCnc SerPl-mCnc Lymphocytes 09/06/2016 N2N/CCD Import Lymphocytes 0.97 Low 1.0-4.0 [#/volume] in [#/volume] in Blood by Blood by Automated count Automated count Lymphocytes/leuk 09/06/2016 N2N/CCD Import Lymphocytes/[place] 8.3 Low 20.0- 42.0 NFr Bld Auto k NFr Bld Auto MCH RBC Qn Auto 09/06/2016 N2N/CCD Import MCH RBC Qn Auto 29.2 25.9- 32.7 MCHC RBC 09/06/2016 N2N/CCD Import MCHC RBC 34.8 High 30.8-34.3 Auto-mCnc Auto-mCnc MCV RBC Auto 09/06/2016 N2N/CCD Import MCV RBC Auto 84.0 80.9-99.0 Monocytes # Bld 09/06/2016 N2N/CCD Import Monocytes # Bld 0.44 0.3-0.9 Auto Auto Monocytes/leuk 09/06/2016 N2N/CCD Import Monocytes/leuk 3.8 Low 4.3-13.2 NFr Bld Auto NFr Bld Auto Neutrophils # 09/06/2016 N2N/CCD Import Neutrophils # 10.12 High 1.8-7.0 Bld Auto Bld Auto Neutrophils/leuk 09/06/2016 N2N/CCD Import Neutrophils/[place] 86.8 High 40.4 -72.8 NFr Bld Auto k NFr Bld Auto PMV Bld Auto 09/06/2016 N2N/CCD Import PMV Bld Auto 12.1 8.9-12.4 Platelets 09/06/2016 N2N/CCD Import Platelets 221 150-400 [#/volume] in [#/volume] in Blood by Blood by Automated count Automated count RBC # Bld Auto 09/06/2016 N2N/CCD Import RBC # Bld Auto 5.13 3.90-5.40 RDW RBC Auto 09/06/2016 N2N/CCD Import RDW RBC Auto 39.6 3-47 RDW RBC Auto-Rto 09/06/2016 N2N/CCD Import RDW RBC 13.3 11.7-14.4 Auto-Rto Unloinc 09/06/2016 N2N/CCD Import Unloinc See Note 21 WBC # Bld Auto 09/06/2016 N2N/CCD Import WBC # Bld Auto 11.7 High 3.1- 10.7 Chlamydia/GC 09/06/2016 [facility] Chlamydia Negative Negative Cristina, Urine (315)- - Trachomatis,Ur -Cristina Neisseria Gonorrhoeae,Ur -Cristina Negative Negative 22 Ua RFX Micro & 09/06/2016 [facility] Urine Color YELLOW Yellow Culture II (315)- - Urine Clarity CLEAR Clear Urine Glucose - Dipstick NEGATIVE mg/dL Negative Urine Bilirubin - Dipstick NEGATIVE Negative Urine Ketone NEGATIVE mg/dL Negative Urine Specific [place] 1.010 N 1.010-1.030 Urine Blood NEGATIVE Negative Urine PH 8.0 High 6.5-7.5 Urine Protein - Dipstick NEGATIVE mg/dL Negative Urine Urobilinogen - Dipstick 0.2 E.U./dL N 0.2-1.0 Urine Nitrite - Dipstick NEGATIVE Negative Urine Leuk Esterase NEGATIVE Negative Source: URINE, CLEAN CAT <SEE NOTE> 23 Drugs Of Abuse-Urine 09/06/2016 [facility] Amphetamines ( Urine) Negative Screen 7 (315)- - Barbiturates (Urine) Negative Benzodiazepines (Urine) Negative Cannabinoids (Urine) Negative Cocaine Metabolite (Urine) Negative Methadone (Urine) Negative Opiates (Urine) Negative Urine Cutoffs * 24 Bilirub Ur Ql 09/06/2016 N2N/CCD Import Bilirub Ur Ql Negative Negative Strip.auto Strip.auto Color Ur 09/06/2016 N2N/CCD Import Color Ur Yellow Yellow Drug screen 09/06/2016 N[facility]N/CCD Import Drug screen * comment comment [Interpretation] [Interpretation] in Urine in Urine Ketones Ur 09/06/2016 N2N/CCD Import Ketones Ur Negative Negative Strip.auto-mCnc Strip.auto-mCnc Leukocyte esterase 09/06/2016 N2N/CCD Import Leukocyte esterase Negative Negative Ur Ql Strip.auto Ur Ql Strip.auto Nitrite Ur Ql 09/06/2016 N2N/CCD Import Nitrite Ur Ql Negative Negative Strip.auto Strip.auto Prot Ur 09/06/2016 N2N/CCD Import Prot Ur Negative Negative Strip.auto-mCnc Strip.auto-mCnc Specific gravity 09/06/2016 N2N/CCD Import Specific gravity 1.010 1.010- 1.0 of Urine by of Urine by 30 Automated test Automated test strip strip Urine amphetamines 09/06/2016 N2N/CCD Import Urine amphetamines Negative detection by detection by screening method screening method Urine appearance 09/06/2016 N2N/CCD Import Urine appearance Clear Clear determination determination Urine barbiturate 09/06/2016 N[facility]N/CCD Import Urine barbiturate Negative screening test screening test Urine 09/06/2016 N[facility]N/CCD Import Urine Negative benzodiazepines benzodiazepines measurement by measurement by screening met screening method (mass/volume) Urine cannabinoids 09/06/2016 N[facility]N/CCD Import Urine cannabinoids Negative detection by detection by screening method screening method Co2 SerPl-sCnc 09/06/2016 N2N/CCD Import Co2 SerPl-sCnc 25 21-32 Bilirub SerPl-mCnc 09/06/2016 N2N/CCD Import Bilirub SerPl-mCnc 0.7 0.2- 1.0 BUN/Creat SerPl 09/06/2016 N2N/CCD Import BUN/Creat SerPl 20.0 BUN SerPl-mCnc 09/06/2016 N2N/CCD Import BUN SerPl-mCnc 16 7-18 Aspartate 09/06/2016 N2N/CCD Import Aspartate 44 High 15-37 aminotransferase aminotransferase [Enzymatic [Enzymatic activity/vol activity/volume] in Serum or Plasma Anion Gap 09/06/2016 N2N/CCD Import Anion Gap 8 8-16 SerPl-sCnc SerPl-sCnc Albumin/Glob SerPl 09/06/2016 N2N/CCD Import Albumin/Glob SerPl 0.9 Albumin SerPl-mCnc 09/06/2016 N2N/CCD Import Albumin SerPl-mCnc 3.8 3.4- 5.0 Alt SerPl-cCnc 09/06/2016 N2N/CCD Import Alt SerPl-cCnc 73 12-78 Alp SerPl-cCnc 09/06/2016 N2N/CCD Import Alp SerPl-cCnc 60 45-117 pH Ur Strip.auto 09/06/2016 N2N/CCD Import pH Ur Strip.auto 8.0 High 6.5- 7.5 Urobilinogen Ur 09/06/2016 N2N/CCD Import Urobilinogen Ur 0.2 0.2-1.0 Strip-aCnc Strip-aCnc Urine opiates 09/06/2016 N2N/CCD Import Urine opiates Negative detection by detection by screening method screening method Urine methadone 09/06/2016 N2N/CCD Import Urine methadone Negative screen screen Urine hemoglobin 09/06/2016 N2N/CCD Import Urine hemoglobin Negative Negative detection by detection by automated test automated test strip strip Urine glucose 09/06/2016 N2N/CCD Import Urine glucose Negative Negative measurement by measurement by automated test automated test strip strip (mass/volume) Urine cocaine 09/06/2016 N2N/CCD Import Urine cocaine Negative metabolite screen metabolite screen Laboratory test 01/17/2016 [facility] Urine HCG NEGATIVE N Negative 25, finding (315)- - (Qualitative) 26 Urine Screen 09/06/2013 N2N/CCD Import Urine Bilirubin - Small High Negative Dipstick Urine Blood Negative Negative Urine Clarity Clear Clear Urine Color Yellow Yellow Urine Glucose - Dipstick Negative mg/dL Negative Urine Ketone Trace mg/dL High Negative Urine Leuk Esterase Negative Negative Urine Nitrite - Dipstick Negative Negative Urine PH 6.0 Low 6.5-7.5 Urine Protein - Dipstick Negative mg/dL Negative Urine Specific [place] >=1.030 1.010-1.030 Urine Urobilinogen - Dipstick 0.2 E.U./dL 0.2-1.0 CBS W/Automated Diff 09/06/2013 N2N/CCD Import Bas% 0.1 % 0.0-1.1 Baso # 0.01 K/uL 0.0-0.1 Eo% 0.7 % 0.0-6.6 Eos # 0.05 K/uL 0.0-0.5 Hematocrit 40.1 % 36.0-46.1 Hemoglobin 14.1 gm/dL 11.6-15.8 Lymph # 1.72 K/uL 0.8-3.4 Lymph % 23.6 % 17.0-46.1 Mean Cell Volume 85.0 fl 80.9-99.0 Mean Corpuscular HGB 29.9 pg 25.9-32.7 Mean Corpuscular HGB Conc 35.2 g/dL High 30.8-34.3 Mean Platelet Volume 12.6 fL High 8.9-12.4 [place] # 0.61 K/uL 0.3-0.9 [place] % 8.4 % 4.3-13.2 Neut# 4.89 K/uL 1.0-7.0 Neut% 67.2 % 40.4-72.8 Platelet Count 172 K/uL 155-360 Red Blood Count 4.72 M/uL 3.90-5.40 Red Cell Distri Width %CV 13.1 % 11.7-14.4 Red Cell Distri Width SD 39.6 fl 3-47 White Blood Count 7.3 K/uL 3.1-10.7 Laboratory test finding 09/06/2013 [facility] Import Alb/Glob 0.9 ratio Albumin 3.8 g/dL 3.5-5.0 Alkaline Phosphatase 64 U/L 50-136 Anion Gap 11 mEq/L 8-16 BUN 14 mg/dL 5-23 BUN/Creat 17.5 ratio Bilirubin,Direct 0.1 mg/dL 0.1-0.4 Bilirubin,Indirect 0.6 mg/dL 0.0-0.9 Bilirubin,Total 0.7 mg/dL 0.2-1.2 Calcium 8.7 mg/dL 8.5-10.1 Carbon Dioxide 24 mEq/L 18-29 Chloride 105 mmol/L 98-107 Creatinine 0.8 mg/dL 0.5-1.4 Globulin 4.3 g/dL 1.9-4.3 Glom Filtration Rate, Estimate >60 mL/min >60 Glucose 101 mg/dL 76-115 HCG Serum, Qualitative Negative If >60 mL/min >60 27 Lipase 47 U/L 28-380 Potassium 3.6 mmol/L 3.5-5.1 SGPT/Alt 53 U/L 30-65 Sgot/Ast 28 U/L 16-40 Sodium 136 mmol/L 136-145 Total Protein 8.1 g/dL High 6.3-8.0 Laboratory test 07/14/2013 [facility] [employer] Urine HCG Negative Negative 28 finding (Qualitative) Laboratory test 03/25/2013 N2N/[facility]irl Import Alb/Glob 1.0 ratio finding Albumin 4.0 g/dL 3.5-5.0 Alkaline Phosphatase 69 U/L 50-136 Anion Gap 11 mEq/L 8-16 BUN 16 mg/dL 5-23 BUN/Creat 22.8 ratio Bas% 0.0 % 0.0-1.1 Baso # 0.00 K/uL 0.0-0.1 Bilirubin,Total 0.3 mg/dL 0.2-1.2 Calcium 8.9 mg/dL 8.5-10.1 Carbon Dioxide 25 mEq/L 18-29 Chloride 109 mmol/L High 98-107 Creatinine 0.7 mg/dL 0.5-1.4 Eo% 0.1 % 0.0-6.6 Eos # 0.01 K/uL 0.0-0.5 Globulin 4.0 g/dL 1.9-4.3 Glom Filtration Rate, Estimate >60 mL/min >60 Glucose 97 mg/dL 76-115 Hematocrit 41.8 % 36.0-46.1 Hemoglobin 14.4 gm/dL 11.6-15.8 If >60 mL/min >60 29 Lymph # 2.69 K/uL 0.8-3.4 Lymph % 34.5 % 17.0-46.1 Mean Cell Volume 86.4 fl 80.9-99.0 Mean Corpuscular HGB 29.8 pg 25.9-32.7 Mean Corpuscular HGB Conc 34.4 g/dL High 30.8-34.3 Mean Platelet Volume 12.4 fL 8.9-12.4 [place] # 0.63 K/uL 0.3-0.9 [place] % 8.1 % 4.3-13.2 Neut# 4.47 K/uL 1.0-7.0 Neut% 57.3 % 40.4-72.8 Platelet Count 179 K/uL 155-360 Potassium 3.5 mmol/L 3.5-5.1 Red Blood Count 4.84 M/uL 3.90-5.40 Red Cell Distri Width %CV 13.0 % 11.7-14.4 Red Cell Distri Width SD 39.7 fl 3-47 SGPT/Alt 48 U/L 30-65 Sgot/Ast 24 U/L 16-40 Sodium 141 mmol/L 136-145 Total Protein 8.0 g/dL 6.3-8.0 White Blood Count 7.8 K/uL 3.1-10.7 Protime 03/25/2013 N2N/CCD Import Inr 1.0 0.9-1.1 30 Protime 12.8 s 12.0-14.4 Laboratory test finding 03/23/2013 N2N/CCD Import Urine Bacteria Few None Seen Urine Bilirubin - Dipstick Negative Negative Urine Blood Large High Negative Urine Clarity Cloudy Clear Urine Color Red Yellow Urine Culture See Note 31 Urine Epithelial Cells Few None Seen /lpf Urine Glucose - Dipstick Negative mg/dL Negative Urine Ketone Trace mg/dL High Negative Urine Leuk Esterase Trace High Negative Urine Nitrite - Dipstick Negative Negative Urine PH 5.5 Low 6.5-7.5 Urine Protein - Dipstick 100 mg/dL High Negative Urine RBC TNTC rbc/hpf High 0-7 Urine Screen See Note 32 Urine Specific [place] >=1.030 1.010-1.030 Urine Urobilinogen - Dipstick 0.2 E.U./dL 0.2-1.0 Urine WBC 5-10 wbc/hpf 0-7 Appearance (Tube 1) Clear Appearance (Tube 4) Clear CSF Culture See Note 33 CSF Glucose 56 mg/dL 50-75 CSF Lymphs (Tube 4) 94 % High 40-60 CSF Monos (Tube 4) 6 % Low 15-45 CSF Rbc (Tube 1) 246 /mm3 High -0 CSF Rbc (Tube 4) 3 /mm3 High -0 CSF Total Protein 17.1 mg/dL 15.0-45.0 CSF Wbc (Tube 1) 1 /mm3 0-5 CSF Wbc (Tube 4) 1 /mm3 0-5 Color (Tube 1) Colorless Color (Tube 4) Colorless Gram Stain See Note 34 Alb/Glob 0.9 ratio Albumin 4.3 g/dL 3.5-5.0 Alkaline Phosphatase 74 U/L 50-136 Anion Gap 14 mEq/L 8-16 BUN 12 mg/dL 5-23 BUN/Creat 15.0 ratio Bilirubin,Total 0.5 mg/dL 0.2-1.2 Calcium 9.5 mg/dL 8.5-10.1 Carbon Dioxide 24 mEq/L 18-29 Chloride 101 mmol/L 98-107 Creatinine 0.8 mg/dL 0.5-1.4 Globulin 4.6 g/dL High 1.9-4.3 Glom Filtration Rate, Estimate >60 mL/min >60 Glucose 85 mg/dL 76-115 If >60 mL/min >60 35 Potassium 3.5 mmol/L 3.5-5.1 SGPT/Alt 61 U/L 30-65 Sgot/Ast 26 U/L 16-40 Sodium 135 mmol/L Low 136-145 Total Protein 8.9 g/dL High 6.3-8.0 CBS W/Automated Diff 03/23/2013 N2N/CCD Import Bas% 0.2 % 0.0-1.1 Baso # 0.01 K/uL 0.0-0.1 Eo% 0.5 % 0.0-6.6 Eos # 0.03 K/uL 0.0-0.5 Hematocrit 42.8 % 36.0-46.1 Hemoglobin 14.7 gm/dL 11.6-15.8 Lymph # 1.55 K/uL 0.8-3.4 Lymph % 23.9 % 17.0-46.1 Mean Cell Volume 86.5 fl 80.9-99.0 Mean Corpuscular HGB 29.7 pg 25.9-32.7 Mean Corpuscular HGB Conc 34.3 g/dL 30.8-34.3 Mean Platelet Volume 12.4 fL 8.9-12.4 [place] # 0.89 K/uL 0.3-0.9 [place] % 13.7 % High 4.3-13.2 Neut# 4.00 K/uL 1.0-7.0 Neut% 61.7 % 40.4-72.8 Platelet Count 181 K/uL 155-360 Red Blood Count 4.95 M/uL 3.90-5.40 Red Cell Distri Width %CV 12.9 % 11.7-14.4 Red Cell Distri Width SD 39.3 fl 3-47 White Blood Count 6.5 K/uL 3.1-10.7 Laboratory test finding 12/29/2012 [facility] Import [id number] See Note 36 Laboratory test finding 12/27/2012 N2N/CCD Import Alb/Glob 1.0 ratio Albumin 3.8 g/dL 3.5-5.0 Alkaline Phosphatase 81 U/L 50-136 Anion Gap 11 mEq/L 8-16 BUN 17 mg/dL 5-23 BUN/Creat 24.2 ratio Bas% 0.3 % 0.0-1.1 Baso # 0.03 K/uL 0.0-0.1 Bilirubin,Total 0.5 mg/dL 0.2-1.2 Calcium 9.2 mg/dL 8.5-10.1 Carbon Dioxide 28 mEq/L 18-29 Chloride 103 mmol/L 98-107 Creatinine 0.7 mg/dL 0.5-1.4 Eo% 3.1 % 0.0-6.6 Eos # 0.31 K/uL 0.0-0.5 Globulin 4.0 g/dL 1.9-4.3 Glom Filtration Rate, Estimate >60 mL/min >60 Glucose 109 mg/dL 76-115 Hematocrit 41.1 % 36.0-46.1 Hemoglobin 14.2 gm/dL 11.6-15.8 If >60 mL/min >60 37 Lymph # 3.52 K/uL High 0.8-3.4 Lymph % 35.3 % 17.0-46.1 Mean Cell Volume 86.9 fl 80.9-99.0 Mean Corpuscular HGB 30.0 pg 25.9-32.7 Mean Corpuscular HGB Conc 34.5 g/dL High 30.8-34.3 Mean Platelet Volume 11.9 fL 8.9-12.4 [place] # 0.76 K/uL 0.3-0.9 [place] % 7.6 % 4.3-13.2 Neut# 5.34 K/uL 1.0-7.0 Neut% 53.7 % 40.4-72.8 Platelet Count 230 K/uL 155-360 Potassium 3.9 mmol/L 3.5-5.1 Red Blood Count 4.73 M/uL 3.90-5.40 Red Cell Distri Width %CV 12.6 % 11.7-14.4 Red Cell Distri Width SD 39.0 fl 3-47 SGPT/Alt 52 U/L 30-65 Sgot/Ast 32 U/L 16-40 Sodium 138 mmol/L 136-145 Thyroid Stim Hormone 3.52 uIU/mL 0.49-4.67 38 Total Protein 7.8 g/dL 6.3-8.0 Vitamin D,1,25 Dihydroxy 31.7 pg/mL 10.0-75.0 39 White Blood Count 10.0 K/uL 3.1-10.7 LDL Cholesterol Profile 12/27/2012 N2N/CCD Import Cholesterol 149 mg/dL 120-200 HDL Cholesterol 23 mg/dL Low 29-83 LDL-Cholesterol 70 mg/dL 62-185 Triglycerides 280 mg/dL High 16-231 Laboratory test 08/12/2012 N2N/CCD Import Tonsillectomy See Note 40 finding Laboratory test 08/06/2012 N2N/CCD Import Culture If Indicated See Note 41 finding Comment HCG Serum, Qualitative Negative Hematocrit 39.1 % 36.0-46.1 Hemoglobin 13.8 gm/dL 11.6-15.8 Mean Cell Volume 86.1 fl 80.9-99.0 Mean Corpuscular HGB 30.4 pg 25.9-32.7 Mean Corpuscular HGB Conc 35.3 g/dL High 30.8-34.3 Mean Platelet Volume 12.5 fL High 8.9-12.4 Platelet Count 208 K/uL 155-360 Red Blood Count 4.54 M/uL 3.90-5.40 Red Cell Distri Width %CV 12.9 % 11.7-14.4 Urine Bacteria Moderate None Seen High Urine Bilirubin - Dipstick Negative Negative Urine Blood Negative Negative Urine Clarity Clear Clear Urine Color Yellow Yellow Urine Culture See Note 42 Urine Epithelial Cells Moderate None Seen /lpf 43 Urine Glucose - Dipstick Negative mg/dL Negative Urine Ketone Negative mg/dL Negative Urine Leuk Esterase Small High Negative Urine Nitrite - Dipstick Negative Negative Urine PH 5.5 Low 6.5-7.5 Urine Protein - Dipstick Negative mg/dL Negative Urine RBC None Seen rbc/hpf 0-7 Urine Screen See Note 44 Urine Specific [place] 1.020 1.010-1.030 Urine Urobilinogen - Dipstick 0.2 E.U./dL 0.2-1.0 Urine WBC 10-20 wbc/hpf High 0-7 White Blood Count 9.0 K/uL 3.1-10.7 1 Updated reference range on new analyzer 2 Updated reference range on new analyzer 3 Concerning GFR Guidelines for Americans: Normal function or mild renal disease, if clinically at risk: >/=60 mL/min Moderately decreased: 30-59 Severely decreased: 15-29 Renal failure: <15 4 Concerning GFR Guidelines: Normal function or mild renal disease, if clinically at risk: >/=60 mL/min Moderately decreased: 30-59 Severely decreased: 15-29 Renal failure: <15 Glomerular Filtration Rate (GFR) is estimated based on the MDRD equation, which assumes a steady state for creatinine as recommended by the National Kidney Disease Education Program in conjunction with the National Institutes of Health and the National Kidney Foundation. Clinical conditions in which it may be necessary to measure GFR by using clearance methods include extremes of age and body size, severe malnutrition or obesity, diseases of skeletal muscle, paraplegia or quadriplegia, vegetarian diet, rapidly changing kidney function, and calculation of the dose of potentially toxic drugs that are excreted by the kidneys. 5 Updated Reference Range 6 Clinical Guidelines for recommended serum 25(OH)Vitamin D Deficient at less than 20 ng/mL Insufficient at 20 to <30 ng/mL Sufficient at 30-100 ng/mL Toxicity at greater than 100 ng/mL 7 May indicate a current or previous infection. Unless otherwise specified, testing [place] [address] 8 May indicate a current or previous infection. Unless otherwise specified, testing [place] [address] 9 Unless otherwise specified, testing [place] [address] 10 May indicate a current or previous infection. Unless otherwise specified, testing [place] [address] 11 Updated reference range on new analyzer 12 Updated reference range on new analyzer 13 Concerning GFR Guidelines for Americans: Normal function or mild renal disease, if clinically at risk: >/=60 mL/min Moderately decreased: 30-59 Severely decreased: 15-29 Renal failure: <15 14 Concerning GFR Guidelines: Normal function or mild renal disease, if clinically at risk: >/=60 mL/min Moderately decreased: 30-59 Severely decreased: 15-29 Renal failure: <15 Glomerular Filtration Rate (GFR) is estimated based on the MDRD equation, which assumes a steady state for creatinine as recommended by the National Kidney Disease Education Program in conjunction with the National Institutes of Health and the National Kidney Foundation. Clinical conditions in which it may be necessary to measure GFR by using clearance methods include extremes of age and body size, severe malnutrition or obesity, diseases of skeletal muscle, paraplegia or quadriplegia, vegetarian diet, rapidly changing kidney function, and calculation of the dose of potentially toxic drugs that are excreted by the kidneys. 15 Updated Reference Range 16 Per NCEP ATP III Guidelines: Results lower than 40 mg/dL are suggestive of increased risk for coronary artery disease. Results > or=to 60 mg/dL are considered a negative risk factor. 17 Per NCEP ATP III Guidelines: Normal Population <130 Patients with medical conditions: CHD/DM Optimal: <100 Borderline high: 130-159 High: 160-189 Very high: >189 18 Clinical Guidelines for recommended serum 25(OH)Vitamin D Deficient at less than 20 ng/mL Insufficient at 20 to <30 ng/mL Sufficient at 30-100 ng/mL Toxicity at greater than 100 ng/mL 19 MIGRAINE, VOMITING, DIARRHEA, ABD 20 Method: [employer] QuickVue One-Step Immunoassay 21 Instrument flagged sample for slide review. Less than 10% Bands seen, no other immature WBC's seen. RBC morphology essentially normal. Platelet estimate= Normal 22 A negative result for either C. trachomatis and/or N. gonorrhoeae does not preclued an infection because results are dependent on adequate specimen collection, absence of inhibitors, and sufficient DNA to be detected. 23 URINE, CLEAN CATCH 24 URINE SPECIMENS ARE SCREENED AT THE LISTED CUTOFFS DRUG CLASS INITIAL TEST LEVEL Amphetamines 1000 ng/mL Barbiturates 200 ng/mL Benzodiazepines 200 ng/mL Cannabinoids 50 ng/mL Cocaine Metabolite 300 ng/mL Methadone 300 ng/mL Opiates 300 ng/mL Any PRESUMPTIVE POSITIVE findings are UNCONFIRMED. Confirmatory testing is suggested if findings are unexpected. Please contact laboratory if confirmatory testing is desired. SPECIMENS ARE HELD FOR 72 HOURS. 25 CONSULT 01/14 45437 N92.6 26 FIRST MORNING SPECIMENS GENERALLY CONTAIN THE HIGHEST CONCENTRATION OF HCG AND ARE RECOMMENDED FOR EARLY DETECTION OF . 27 Note: Persistent reduction for 3 months or more in an eGFR <60 mL/min/1.73 m2 defines CKD. Patients with eGFR values >/=60 mL/min/1.73 m2 may also have CKD if evidence of persistent proteinuria is present. The original MDRD equation for estimated GFR is not valid for patients less than 18 years of age. Additional information may be found at [email or web address]. 28 FIRST MORNING SPECIMENS GENERALLY CONTAIN THE HIGHEST CONCENTRATION OF HCG AND ARE RECOMMENDED FOR EARLY DETECTION OF . 29 Note: Persistent reduction for 3 months or more in an eGFR <60 mL/min/1.73 m2 defines CKD. Patients with eGFR values >/=60 mL/min/1.73 m2 may also have CKD if evidence of persistent proteinuria is present. The original MDRD equation for estimated GFR is not valid for patients less than 18 years of age. Additional information may be found at [email or web address]. 30 THERAPEUTIC INR RANGE: 2.0 - 3.0 DVT, Pulmonary embolus, prophylaxis against venous thrombosis or systemic embolization in high risk patients. 2.5 - 3.5 Mechanical heart valves 31 COLONY COUNT ! 10,000 - 20,000 CFU/ml Organism 1 ! URETHRAL KATHRYN ANAEROBIC BLOOD CULTURE DRAWN WITH OTHER SET. 32 03/23/13 LAB.MPK [facility] 33 NO GROWTH: FINAL REPORT 34 GRAM STAIN ! NO ORGANISMS SEEN 35 Note: Persistent reduction for 3 months or more in an eGFR <60 mL/min/1.73 m2 defines CKD. Patients with eGFR values >/=60 mL/min/1.73 m2 may also have CKD if evidence of persistent proteinuria is present. The original MDRD equation for estimated GFR is not valid for patients less than 18 years of age. Additional information may be found at [email or web address]. 36 [facility] [address] [place] [address], [address] [place] [address] CYTOLOGY REPORT Name: Leisa Blackburn : 1985 (Age: 27) Sex: F Location: [facility] Med. Rec. # [id number] Date Collected: 12/29/2012 Billing #: [id number] Date Received: 12/29/2012 Requisition # [id number] Physician(s): DAMI VALDIVIA MD Source of Specimen: ENDOCERVICAL/THIN PREP Clinical Information: Date of Last Menstrual Period: 11/25/12 Menstrual History: Irregular Specimen Adequacy: SATISFACTORY FOR EVALUATION. ADEQUATE ENDOCERVICAL/TRANSFORMATION ZONE. General Categorization : NEGATIVE FOR INTRAEPITHELIAL LESION OR MALIGNANCY. kf Electronic Signature DEBBI Lacey (ASCP) Reported: 12/31/2012 [facility] HPV High Risk Date Ordered: 12/30/2012 Status: Signed Out Date Reported: 01/03/2013 High Risk NEGATIVE (HPV types 16, 18, 31, 33, 35, 39, 45, 51, 52, 56, 58, 59, 66, 68) [facility]ervista HPV HR Electronic Signature Lety Cr [place] [facility] ICD-9 Code(s) V72.31 37 Note: Persistent reduction for 3 months or more in an eGFR <60 mL/min/1.73 m2 defines CKD. Patients with eGFR values >/=60 mL/min/1.73 m2 may also have CKD if evidence of persistent proteinuria is present. The original MDRD equation for estimated GFR is not valid for patients less than 18 years of age. Additional information may be found at [email or web address]. 38 Specimen slightly Hemolyzed, interpret with caution 39 Performed at: [address] [id number] [place]lower Room Attendant: Travis Osborne MD, Phone: [phone] OPERATION/PROCEDURE T+A DIAGNOSIS: PARTS 1 \\E&E\\ 2: "RIGHT AND LEFT TONSILS , TONSILLECTOMY": CHRONIC TONSILLITIS. ACTINOMYCETES COLONIZATION. Goldie GROSS Part 1: The specimen is received in a single container additionally labeled "R TONSIL" is a mucosal covered grossly recognizable tonsil overall measuring 3.4 x 2.3 x 1.2 cm. The gross cut surface fails to reveal the presence of focal abnormalities. The cut surface reveals only the presence of normal appearing clefts and lymphoid parenchyma. Zinc [employer] Blasting sections are submitted in one cassette. Part 2: The specimen is received in a single container additionally labeled "L TONSIL" is a mucosal covered grossly recognizable tonsil overall measuring 3.1 x 2.1 x 1.2 cm. The gross cut surface fails to reveal the presence of focal abnormalities. The cut surface reveals only the presence of normal appearing clefts and lymphoid parenchyma. Zinc Miner Blasting sections are submitted in one cassette. JAMESON/aaliyah MICROSCOPIC Part 1 \\E&E\\ 2: Sections from both tonsils reveal squamous mucosa overlying follicular hyperplastic lymphoid tonsillar tissue. 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 PRE OPERATIVE DIAGNOSIS Hypertrophy tonsils REVIEW CODE CODE: I ----- KORIN Ruffin MD 08/16/12 1406 ----- 41 CULTURE TO FOLLOW 42 COLONY COUNT ! 20,000-30,000 CFU/ml Organism 1 ! MIXED URETHRAL KATHRYN 43 POSSIBLE UROGENITAL CONTAMINATION. 44 08/06/12 LAB.EMM1 [facility] Procedures Date Code Description Status 05/14/2018 96287 Measure Blood Oxygen Level Single Determination Completed 04/05/2018 54344 Measure Blood Oxygen Level Single Determination Completed 10/29/2017 93312 Visual Screening Test Completed Encounters Type Date Location Provider Dx Diagnosis Office Visit 04/05/2018 [facility] Dari Cid PA L50.2 Urticaria due to cold 4:00p and heat J45.20 Mild intermittent asthma, uncomplicated Z68.41 Body mass index (BMI) 40.0-44.9, adult Office Visit 10/29/2017 10:45a [facility] Dari Cid, H10.31 Unspecified acute PA conjunctivitis, RIGHT eye Z68.41 Body mass index (BMI) 40.0-44.9, adult Office Visit 07/28/2017 8:30a [facility] Dari Cid PA Z00.00 Encntr for general adult medical exam w/o abnormal findings R53.83 Other fatigue M25.571 Pain in RIGHT ankle and joints of RIGHT foot Office Visit 01/23/2015 8:30a [facility] Sherri Valdivia, S92.535A Nondisp fx of BEADWORKER distal phalanx of LEFT lesser toe(s), init Z68.41 Body mass index (BMI) 40.0-44.9, adult Office Visit 05/24/2014 3:15p David Chavezia, СЕРГЕЙ 844.9 Sprains & Strains Knee & Leg Unspec Office Visit 05/15/2014 3:30p [facility] Sherri Valdivia NP 844.9 Sprains & Strains Knee & Leg Unspec Plan of Treatment Future Appointment(s):07/29/2018 10:00 am - Dari Cid PA at [facility]2018 - Dari Cid PAJ20.9 Acute bronchitis, unspecifiedNew Medication: Azithromycin 250 mg - 2 tablets by mouth on day 1 then 1 tablet on days 2- 5Prednisone 20 mg - 2 tablets by mouth for 5 daysComments:With asthma history, will treat with zithromaxPrednisone to help with wheezingPush fluidsInhalerCallwith worsening/persisting symptomsFollow up:PrnZ68.41 Body mass index (BMI) 40.0-44.9, adult
[2018-05-21 15:50] VITALS: BP 130/65
--- NOTE | 2018-05-21 16:01 | UC ---
Respiratory Complaint HPI - HPI Summary HPI Summary: cough x 2 weeks nasal congestion, runny nose, was dx Bronchitis , placed on Zpak and prednisone started with high fever today , chills, sever body aches - History of Current Complaint Chief Complaint: UCGeneralIllness Stated Complaint: COUGH/CONGESTION Time Seen by Provider: 05/21/18 15:43 Hx Obtained From: Patient Hx Last Menstrual Period: complex hyperplasia; denies risk for Onset/Duration: Gradual Onset, Lasting Weeks - 2, Worse Since - one day Timing: Constant Severity Initially: Moderate Severity Currently: Severe Pain Intensity: 9 Character: Cough: Nonproductive Aggravating Factors: Exertion, Deep Breaths Alleviating Factors: Nothing Associated Signs And Symptoms: Positive: Fever, Chills, Wheezing, URI, Nasal Congestion - Allergies/Home Medications Allergies/Adverse Reactions: Allergies Allergy/AdvReac Type Severity Reaction Status Date / Time aspirin Allergy Severe Bleeding Verified 05/21/18 15:50 Penicillins Allergy Severe Bleeding Verified 05/21/18 15:50 pineapple Allergy Severe tongue Verified 05/21/18 15:50 swelling, itching promethazine Allergy Severe Hallucinati Verified 05/21/18 15:50 ons Cold Allergy Severe Hives Uncoded 05/21/18 15:50 mustard seed Allergy Severe tongue Uncoded 05/21/18 15:50 swelling, itching Home Medications: Home Medications Acetaminophen [Tylenol Extra Strength] 1,000 mg ONCE 05/21/18 [History Confirmed 05/21/18] PMH/Surg Hx/FS Hx/Imm Hx - Additional Past Medical History Additional PMH: Complex endometrial hyperplasia - Surgical History Surgical History: Yes Surgery Procedure, Year, and Place: T&A, 07/14/13 polypectomy, D&C x3. LEFT wrist /LEFT elbow/LEFT carpal tunnel - Family History Known Family History: Positive: None, Hypertension Negative: Unknown, Cardiac Disease, Diabetes - Social History Alcohol Use: Rare Substance Use Type: None Smoking Status (MU): Never Smoked Tobacco Have You Smoked in the Last Year: No Household Exposure Type: Cigarettes - Immunization History Most Recent Influenza Vaccination: Not the Season Review of Systems All Other Systems Reviewed And Are Negative: Yes Constitutional: Positive: Fever, Chills, Fatigue Skin: Positive: Negative Eyes: Positive: Negative ENT: Positive: Sore Throat, Nasal Discharge Respiratory: Positive: Cough Cardiovascular: Positive: Negative Is Patient Immunocompromised?: No Physical Exam Triage Information Reviewed: Yes Appearance: Well-Appearing, No Pain Distress, Obese Vital Signs: Initial Vital Signs Temp 99.9 F 05/21/18 15:44 Pulse 106 05/21/18 15:44 Resp 16 05/21/18 15:44 BP 130/65 05/21/18 15:44 Pulse Ox 99 05/21/18 15:44 Vital Signs Reviewed: Yes Eye Exam: Normal Eyes: Positive: Conjunctiva Clear ENT: Positive: Normal ENT inspection, Hearing grossly normal, Pharynx normal Neck: Positive: Supple, Nontender, No Lymphadenopathy Respiratory: Positive: Chest non-tender, Lungs clear, Normal breath sounds Cardiovascular: Positive: Tachycardia Abdominal Exam: Normal Abdomen Description: Positive: Nontender, Soft Bowel Sounds: Positive: Present Musculoskeletal: Positive: Strength Intact, ROM Intact, No Edema Neurological: Positive: Alert, Muscle Tone Normal Skin Exam: Normal Respiratory Course/Dx - Differential Dx/Diagnosis Provider Diagnosis: Influenza Discharge - Sign-Out/Discharge Documenting (check all that apply): Patient Departure All imaging exams completed and their final reports reviewed: No Studies - Discharge Plan Condition: Stable Disposition: HOME Prescriptions: Oseltamivir CAP* [Tamiflu CAP*] 75 mg PO BID #10 cap Patient Education Materials: Influenza (DC) Forms: *Work Release Referrals: Dari Cid PA [Primary Care Provider] - 7 Days - Billing Disposition and Condition Condition: STABLE Disposition: Home
== END 2018-05-21 16:01 | disposition home or self-care (01) ==
LOC: UCCORT 15:17
DX: J11.1 Influenza due to unidentified influenza virus with other respiratory manifestations (principal); Z88.8 Allergy status to other drugs, medicaments and biological substances; Z88.0 Allergy status to penicillin; Z91.018 Allergy to other foods
CPT/HCPCS: 99212; G0463

== ENCOUNTER 2018-09-23 13:53 | Emergency (ER) | payer OTHER ==
--- OUTSIDE RECORDS SUMMARY | 2018-09-23 14:26 | XMS REPORT | Continuity of Care Document ---
:1985 External Reference #:[id number] Author Name Dari Cid PA Address [address] [place] [address] Care Team Providers Name Role Phone Davin Matute DO Care Team Information Staff Internist Office Based Only Unavailable Payers Date Identification Numbers Payment Provider Subscriber Policy Number: [id number] [employer] Leisa Blackburn PayID: [id number] [address] [place] [address] Problems Active Problems Provider Date Allergic rhinitis Digiovanna, Sherri, [employer] Onset: 05/22/2012 Depressive disorder Digiovanna, Sherri, [employer] Onset: 05/22/2012 Obesity Digiovanna, Sherri, [employer] Onset: 11/06/2010 Family History Date Family Member(s) Observation Comments [...] college Marital Status Same sex marriage. 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 Hobbies Softball Hobbies Horseback Riding Tobacco Use Start: Unknown Never Smoked Cigarettes ETOH Use Denies alcohol use Recreational Drug Use Never Used Drugs Tobacco Use Start: Unknown Patient has never smoked Smoking Status Reviewed: 07/29/18 Patient has never smoked Currently Active Patient is currently with sexually active Allergies, Adverse Reactions, Alerts Active Allergies Reaction Severity Comments Date Mustard 06/07/2008 Pineapple 06/07/2008 Penicillin 05/12/2014 Aspirin BLEEDING 05/15/2014 Cold HIVES IN AREA OF COLD JOSE 05/15/2014 Phenergan Holusination Severe 07/28/2017 Medications Active Medications SIG Qnty Indications Ordering Date Provider Ondansetron 1 tablet every 8 30tabs Matute, 09/14/2018 4mg Tablets hours as needed DO Davin Dispers Nystatin 5 milliliters 200ml Matute, 09/14/2018 [id number] swish and swallow DO Davin Suspension four times a day for 10 days Betamethasone 1 application to 45gm Matute, 09/14/2018 Dipropionate hands twice daily DO Davin 0.05% Cream Gabapentin take 1 capsule at 30caps Matute, 08/24/2018 300mg Capsules bedtime DO Davin Qvar Redihaler 1 puff by mouth 10.600gm Matute, 07/29/2018 40mcg/Act twice daily DO Davin Aerosol Lidocaine Viscous 15 milliliters 200ml K12.0 Matute, 06/21/2018 2% swished in the DO Davin Solution mouth and spit out no more frequently than every 3 hours Naproxen 1 tablet by mouth 60tabs R59.0 Matute, 06/21/2018 500mg Tablets twice daily with DO Davin food Albuterol Sulfate 1 vial via 180ml Matute, 05/24/2018 nebulizer every DO Davin (2.5mg/3ML) 0.083% 4-6 hours as Nebulizer needed wheezing Nebulizer 1use as directed 1units Matute, 05/24/2018 Kit/Tubing/Mouthpiece dx: j40 DO Davin Kit Levocetirizine 1 by mouth every 30tabs L50.2 Matute, 04/05/2018 Dihydrochloride day DO Davin 5mg Tablets Ventolin HFA inhale 2 puffs by 18units J45.20 Matute, 04/05/2018 108(90Base) mouth every 4 to 6 DO Davin mcg/Act Aerosol hours if needed for cough wheezing or shortness of breath Tylenol 2 tabs 4 times Unknown 325mg Tablets daily as needed Venlafaxine HCL ER 1 by mouth every Unknown 75mg day Caps ER 24HR Trazodone HCL 1 by mouth every Unknown 50mg night at bedtime Tablets History Medications Azithromycin 2 tablets by 6tabs J45.901 Davin Matute, 2018 - 250mg mouth on day 1 DO 08/23/2018 Tablets then 1 tablet on days 2-5 Prednisone 4 tablets by 21tabs J45.901 Davin Matute, 2018 - 10mg mouth x 2 days, DO 08/24/2018 Tablets then 3 tablets x 2 days, then 2 tablets x 2 days, then 1 tablet until finished Azithromycin 2 tablets by 6tabs H66.92 Davin Matute, 06/21/2018 - 250mg mouth on day 1 DO 06/26/2018 Tablets then 1 tablet on days 2-5 Levofloxacin 1 by mouth 5tabs Davin Matute, 05/24/2018 - 750mg daily for 5 DO 05/29/2018 Tablets days Azithromycin 2 tablets by 6tabs J20.9 Davin Matute, 05/14/2018 - 250mg mouth on day 1 DO 05/19/2018 Tablets then 1 tablet on days 2-5 Prednisone 2 tablets by 10tabs J20.9 Davin Matute, 05/14/2018 - 20mg mouth for 5 DO 05/19/2018 Tablets days Flovent Diskus 1 puff twice 28units J45.20 Davin Matute, 04/05/2018 - daily DO 04/05/2018 100mcg/Blist Aerosol Flovent HFA 2 puffs twice 10.600gm J45.20 Davin Matute, 04/05/2018 - 44mcg/Act daily DO 07/29/2018 Aerosol Sulfacetamide 2 drops into 5ml H10.31 Davin Matute, 10/29/2017 - Sodium/Prednisolone RIGHT eye three DO 04/05/2018 Sodium Phosphate times daily for 7 days 10-0.23% Solution Naproxen 1 tablet by 30tabs M25.571 Davin Matute, 07/28/2017 - 500mg mouth twice DO 04/05/2018 Tablets daily with food Ondansetron HCL 3 Times A Day 12tabs Unknown 09/06/2016 - 4mg as Needed as 07/07/2017 Tablets needed for Nausea Naproxen Sodium 1 by mouth 60tabs [facility] - 550mg every 12 hours Sherri, [employer] CLE[employer] 07/07/2017 Tablets for 2 weeks then as needed No Active Unknown 05/15/2014 - Medications 05/24/2014 Naproxen Sodium one po Q12H prn 60tabs Digiovanna, 11/26/2011 - 550mg for pain, take Sherri, [employer] CLE[employer] 05/15/2014 Tablets with food Cetirizine HCL one po daily at [facility], 11/26/2011 - 10mg hs prn Sherri, [employer] CLE[employer] 05/15/2014 Tablets Wellbutrin XL 1 daily [facility]tabs [facility] 04/18[facility]2011 - 150mg Sherri, [employer] CLE[employer] 05/15/2014 Tablets ER 24HR June Fe 1.5/30 Unknown - 05/15/2014 1.5/30 Tablets Nasonex 1 sprays each 1units Unknown - 50mcg/Act nostril daily 05/15/2014 Suspension Ondansetron HCL 1 tablet q6 Unknown - 4mg hours as needed 07/29/2018 Tablets nausea Immunizations CPT Code Status Date Vaccine Reaction Lot # [id number] Given 12/28/2012 HPV Vaccine (Gardasil) 3 Dose Schedule 57688 Given 12/17/2010 Tdap (Adacel) Ages 7 And Above Only BOOSTRIX 75950 Given 10/24/2005 Menactra/Menveo Meningococcal Vaccine 71975 Given 12/17/2001 DTaP Immunization 7 Yrs & Younger 94703 Given 10/26/1999 Hepatitis B Vac Ped/Adolescent 3 Dose Schedule 47446 Given 05/31/1999 Hepatitis B Vac Ped/Adolescent 3 Dose Schedule 62096 Given 05/01/1999 Hepatitis B Vac Ped/Adolescent 3 Dose Schedule 23247 Given 09/12/1992 Oral Poliovirus Immunization 95874 Given 09/12/1992 MMR Virus Immunization 79836 Given 09/12/1992 DTaP Immunization 7 Yrs & Younger 88380 Given 09/12/1992 Hib HbOC Conjugate 4 Dose Schedule 65623 Given 02/18/1989 Oral Poliovirus Immunization 37911 Given 02/18/1989 DTaP Immunization 7 Yrs & Younger 08667 Given 02/18/1989 Hib HbOC Conjugate 4 Dose Schedule 83694 Given 11/19/1988 MMR Virus Immunization 99975 Given 1985 Oral Poliovirus Immunization 00031 Given 1985 DTaP Immunization 7 Yrs & Younger 51439 Given 1987 Oral Poliovirus Immunization 29457 Refused 07/29/2018 Pneumococcal 23 Immunization Adult Or Immunosuppressed Patient 14074 Refused 04/05/2018 Influenza Vac, Quadrivalent, Split, 0.5mL Dosage, Im Use Vital Signs Date Vital Result Comment 09/22/2018 9:32am Body Temperature 97.4 F Weight 239.00 lb Heart Rate 72 /min BP Systolic 130 mmHg BP Diastolic 74 mmHg Respiratory Rate 18 /min Height 63 inches 5'3" BMI (Body Mass Index) 42.3 kg/m2 08/24/2018 10:54am Body Temperature 97.7 F Weight 242.00 lb Heart Rate 83 /min BP Systolic 112 mmHg BP Diastolic 70 mmHg Respiratory Rate 18 /min Height 63 inches 5'3" O2 % BldC Oximetry 98 % BMI (Body Mass Index) 42.9 kg/m2 2018 10:22am Body Temperature 97.9 F Weight 245.00 lb Heart Rate 74 /min BP Systolic 120 mmHg BP Diastolic 70 mmHg Respiratory Rate 18 /min Height 63 inches 5'3" O2 % BldC Oximetry 98 % BMI (Body Mass Index) 43.4 kg/m2 07/29/2018 9:55am Body Temperature 98.0 F Weight 241.00 lb Heart Rate 76 /min BP Systolic 120 mmHg BP Diastolic 80 mmHg Respiratory Rate 18 /min Height 63 inches 5'3" BMI (Body Mass Index) 42.7 kg/m2 07/07/2018 3:57pm Body Temperature 97.5 F Weight 239.00 lb Heart Rate 78 /min BP Systolic 120 mmHg BP Diastolic 70 mmHg Respiratory Rate 18 /min Height 63 inches 5'3" BMI (Body Mass Index) 42.3 kg/m2 06/21/2018 10:35am Body Temperature 97.7 F Weight 236.00 lb Heart Rate 76 /min BP Systolic 114 mmHg BP Diastolic 78 mmHg Respiratory Rate 18 /min Height 63 inches 5'3" BMI (Body Mass Index) 41.8 kg/m2 06/18/2018 7:59am Body Temperature 97.4 F Weight 240.00 lb Heart Rate 78 /min BP Systolic 120 mmHg BP Diastolic 80 mmHg Respiratory Rate 18 /min 06/04/2018 9:21am Body Temperature 97.3 F Weight 237.00 lb Heart Rate 66 /min BP Systolic 120 mmHg BP Diastolic 68 mmHg O2 % BldC Oximetry 99 % 05/24/2018 2:29pm Body Temperature 97.8 F Weight 243.00 lb Heart Rate 88 /min BP Systolic 122 mmHg BP Diastolic 80 mmHg Respiratory Rate 18 /min O2 % BldC Oximetry 98 % 05/14/2018 8:58am Body Temperature 97.7 F Apap [...] Date Facility Test Result H/L Range Note Laboratory test [facility] Urine Culture Microbiology res 1 finding 9 <SEE NOTE> Laboratory test [facility] Rheumatoid 10.3 IU/mL High 0.0-10.0 finding 9 [facility] CCP Antibody Igg Negative Negative Esr 24 mm/hr High 0-20 CRP (C-Reactive) 7.19 mg/dL High 0.00-0.75 Veronica Screen With Reflex-[facility] 06/18/2018 [facility] Veronica Screen NEGATIVE Negative dsDNA IgG 2.20 IU/mL 0.00-9.00 2 CBC with Auto Diff-[facility]cmg 06/18/2018 [facility] WBC 11.4 K/uL High 4.1-11.0 RBC 4.74 M/uL 4.00-5.40 Hemoglobin 14.2 gm/dL 12.0-16.0 Hematocrit 41.4 % 36.0-47.0 MCV 87.3 fL 80.0-97.0 MCH 30.0 pg 27.0-32.0 MCHC 34.4 g/dL 32.0-36.0 RDW 14.0 % 11.5-14.5 PLT Count 166 K/ul 140-400 MPV 10.8 FL High 7.1-10.7 Neutrophil 72.3 % 35.0-75.0 Lymphocyte 18.0 % 16.0-52.0 Monocyte 7.1 % 2.0-10.0 Eosinophil 2.3 % 0.0-5.0 Basophil 0.3 % 0.0-4.0 Abs Neutrophils 8.2 K/uL High 2.1-8.0 Abs Lymphocytes 2.0 K/uL 0.8-5.5 Abs Monocytes 0.8 K/uL 0.1-1.0 Abs Eosinophils 0.3 K/uL 0.0-0.5 Abs Basophils 0.0 K/uL 0.0-0.3 Comprehensive Met Panel-[facility] 06/18/2018 [facility] Sodium 139 mmol/L 135- 146 3 Potassium 3.8 mmol/L 3.5-5.2 Chloride# 104 mmol/L 97-110 4 Carbon Dioxide 23 mmol/L Low 24-34 Glucose 126 mg/dL High 70-105 BUN 14 mg/dL 6-26 Creatinine 0.7 mg/dL 0.5-1.4 Calcium 9.5 mg/dL 8.5-10.2 Total Protein 7.4 g/dL 6.0-8.0 Albumin 4.5 g/dL 3.6-4.9 Globulin 2.9 g/dL 2.0-3.5 A/G Ratio 1.6 Ratio 1.0-2.2 Total Bilirubin 1.0 mg/dL 0.1-1.3 Alkaline Phosphatase 69 U/L 24-140 Alt 49 U/L High 3-42 Ast 26 U/L 8-42 Anion Gap 12 mmol/L 5-15 5 Erica Egfr >60 >60 6 Non Erica Egfr >60 >60 7 Laboratory test finding 06/18/2018 [facility] Magnesium 1.9 mg/dL 1.5-2.7 PTH,Intact W/ CA -RL 06/18/2018 [facility] PTH, Intact @ 39.1 pg/mL (18.5- 88.0) 8 Calcium @ 9.4 mg/dL (8.4-10.2) 9 Urinalysis With 06/01/2018 [facility] Urine Color YELLOW Yellow 10 Microscopic (315)- - Urine Clarity SL CLOUDY Clear Urine Glucose - Dipstick NEGATIVE mg/dL Negative Urine Bilirubin - Dipstick SMALL Abnormal Negative Urine Ketone TRACE mg/dL High Negative Urine Specific [place] >=1.030 N 1.010-1.030 Urine Blood SMALL Abnormal Negative Urine PH 6.0 Low 6.5-7.5 Urine Protein - Dipstick 30 mg/dL High Negative Urine Urobilinogen - Dipstick 0.2 E.U./dL N 0.2-1.0 Urine Nitrite - Dipstick NEGATIVE Negative Urine Leuk Esterase NEGATIVE Negative Urine RBC 0-2 rbc/hpf 0-2 Urine WBC 0-2 wbc/hpf 0-7 Urine Epithelial Cells FEW /lpf None Seen Urine Bacteria VERY FEW None Seen Source: URINE, CLEAN CAT <SEE NOTE> 11 Comprehensive Metabolic 06/01/2018 [facility] Glucose 151 mg/dL High 74-106 Panel (315)- - BUN 21 mg/dL High 7-18 Creatinine 1.1 mg/dL 0.6-1.3 Glom Filtration Rate, Estimate >60 mL/min >60 If >60 mL/min >60 12 BUN/Creat 19.0 ratio Sodium 139 mmol/L N 136-145 Potassium 3.8 mmol/L N 3.5-5.1 Chloride 106 mmol/L N 98-107 Carbon Dioxide 21 mmol/L N 21-32 Anion Gap 12 mEq/L N 8-16 Calcium 9.7 mg/dL N 8.5-10.1 Total Protein 9.0 g/dL High 6.4-8.2 Albumin 4.2 g/dL N 3.4-5.0 Globulin 4.8 g/dL High 1.9-4.3 Alb/Glob 0.9 ratio Bilirubin,Total 0.7 mg/dL N 0.2-1.0 Sgot/Ast 34 U/L N 15-37 SGPT/Alt 56 U/L N 12-78 Alkaline Phosphatase 72 U/L N 45-117 Laboratory test finding 06/01/2018 [facility] Lipase 93 U /L N 56-289 (315)- - HCG,Serum (Qualitative) NEGATIVE (Negative) 13 CBS W/Automated 06/01/2018 [facility] White Blood 18.3 K/ uL High 3.1-10.7 Diff (315)- - Count Red Blood Count 5.46 M/uL High 3.90-5.40 Hemoglobin 16.1 gm/dL High 11.6-15.8 Hematocrit 45.4 % N 36.0-46.1 Mean Cell Volume 83.2 fl N 80.9-99.0 Mean Corpuscular HGB 29.5 pg N 25.9-32.7 Mean Corpuscular HGB Conc 35.5 g/dL High 30.8-34.3 Platelet Count 240 K/uL N 155-360 Red Cell Distri Width SD 39.5 fl N 36-47 Red Cell Distri Width %CV 13.4 % N 11.7-14.4 Mean Platelet Volume 12.4 fL N 8.9-12.4 Neut% 85.8 % High 40.4-72.8 Lymph % 7.4 % Low 20.0-42.0 [place] % 5.9 % N 4.3-13.2 Eo% 0.8 % N 0.0-6.6 Bas% 0.1 % N 0.0-1.1 Neut# 15.67 K/uL High 1.8-7.0 Lymph # 1.35 K/uL N 1.0-4.0 [place] # 1.08 K/uL High 0.3-0.9 Eos # 0.15 K/uL N 0.0-0.5 Baso # 0.02 K/uL N 0.0-0.1 Slide Review 06/01/2018 [facility] Slide Review DIFF ORDERED (315)- - Differential-WBC 06/01/2018 [facility] Total Cells 100 # CELLS Confirm (315)- - Counted Band% 5 % N 0-8 Neutrophils% 89 % High 33-73 Lymph% 4 % Low 20-42 Monocyte% 2 % N 0-10 Platelet Estimate NORMAL Toxic Granulation 2+ Hemoglobin A1c 09/02/2017 [facility] Hemoglobin A1c 6.0 % High 4.1-5.9 Estimated Average Glucose Calc 126 mg/dL 71-140 Comprehensive Met Panel-[facility] 09/02/2017 [facility] Sodium 141 mmol/L 135- 146 14 Potassium 4.0 mmol/L 3.5-5.2 Chloride# 105 mmol/L 97-110 15 Carbon Dioxide 24 mmol/L 24-34 Glucose 125 mg/dL High 70-105 BUN 19 mg/dL 6-26 Creatinine 0.8 mg/dL 0.5-1.4 Calcium 8.9 mg/dL 8.5-10.2 Total Protein 6.9 g/dL 6.0-8.0 Albumin 4.1 g/dL 3.6-4.9 Globulin 2.8 g/dL 2.0-3.5 A/G Ratio 1.5 Ratio 1.0-2.2 Total Bilirubin 0.5 mg/dL 0.1-1.3 Alkaline Phosphatase 59 U/L 24-140 Alt 56 U/L High 3-42 Ast 32 U/L 8-42 Erica Egfr >60 >60 16 Non Erica Egfr >60 >60 17 Anion Gap 12 mmol/L 5-15 18 Laboratory test finding 09/02/2017 [facility] Vitamin D 25 20 ng/mL Low 30- 100 19 Hydroxy Laboratory test finding 09/02/2017 [facility] Ebv Early Ag Igg POSITIVE ( Neg) 20 Ebv Nuclear Ag Igg POSITIVE (Neg) 21 Ebv Vca Igm NEGATIVE (Neg) 22 Ebv Vca Igg POSITIVE (Neg) 23 CBC with Auto Diff-fcmg 07/28/2017 [facility] WBC 9.4 K/uL 4.1-11.0 RBC 4.86 M/uL [...] 07/28/2017 [facility] Sodium 139 mmol/L 135- 146 24 Potassium 4.2 mmol/L 3.5-5.2 Chloride# 104 mmol/L 97-110 25 Carbon Dioxide 26 mmol/L 24-34 Glucose 129 mg/dL High 70-105 BUN 17 mg/dL 6-26 Creatinine 0.7 mg/dL 0.5-1.4 Calcium 9.5 mg/dL 8.5-10.2 Total Protein 7.5 g/dL 6.0-8.0 Albumin 4.4 g/dL 3.6-4.9 Globulin 3.1 g/dL 2.0-3.5 A/G Ratio 1.4 Ratio 1.0-2.2 Total Bilirubin 0.4 mg/dL 0.1-1.3 Alkaline Phosphatase 67 U/L 24-140 Alt 74 U/L High 3-42 Ast 40 U/L 8-42 Erica Egfr >60 >60 26 Non Erica Egfr >60 >60 27 Anion Gap 9 mmol/L 5-15 28 Lipid 07/28/2017 [facility] Cholesterol 168 mg/dL 50-199 Triglycerides 171 mg/dL 30-200 HDL 37 mg/dL 35-85 29 Chol/ HDL Ratio 4.6 ratio 3.7-5.6 VLDL 34 mg/dL High 2-29 LDL (Calc) 97 mg/dL 20-99 30 Laboratory test finding 07/28/2017 [facility] TSH 2.51 uIU/mL 0.35-4.94 Vitamin D 25 Hydroxy 21 ng/mL Low 30-100 31 Vitamin B12 725 pg/mL 180-914 Uric Acid 6.8 mg/dL 2.6-7.6 MCH RBC Qn Auto 09/06/2016 N2N/CCD Import MCH RBC Qn Auto 29.2 25.9- 32.7 Lymphocytes/leuk 09/06/2016 N2N/CCD Import Lymphocytes/leuk 8.3 Low 20.0- 42.0 NFr Bld Auto NFr Bld Auto Lymphocytes 09/06/2016 N2N/CCD Import Lymphocytes 0.97 Low 1.0-4.0 [#/volume] in [#/volume] in Blood by Blood by Automated count Automated count Hgb Bld-mCnc 09/06/2016 N2N/CCD Import Hgb Bld-mCnc [...] Lipase 105 73-393 SerPl-cCnc Laboratory test 09/06/2016 [facility] Magnesium 1.9 mg/ dL N 1.8-2.4 32 finding (315)- - Lipase 105 U/L N 73-393 HCG,Serum (Qualitative) NEGATIVE (Negative) 33 Sodium 09/06/2016 N2N/CCD Import Sodium 139 136-145 SerPl-sCnc SerPl-sCnc Prot SerPl-mCnc 09/06/2016 N2N/CCD Import Prot SerPl-mCnc 8.1 6.4-8.2 Potassium 09/06/2016 N2N/CCD Import Potassium 4.1 3.5-5.1 SerPl-sCnc SerPl-sCnc Glucose 09/06/2016 N2N/CCD Import Glucose 111 High 74-106 [Mass/volume] in [Mass/volume] in Serum or Plasma Serum or Plasma MCHC RBC 09/06/2016 N2N/CCD Import MCHC RBC [...] Auto Bld Auto Neutrophils/leuk 09/06/2016 N2N/CCD Import Neutrophils/leuk 86.8 High 40.4-72.8 NFr Bld Auto NFr Bld Auto PMV Bld Auto 09/06/2016 [...] RBC Auto-Rto 09/06/2016 N2N/CCD Import RDW RBC Auto-Rto 13.3 11.7- 14.4 Unloinc 09/06/2016 N2N/CCD Import Unloinc See Note 34 WBC # Bld Auto 09/06/2016 N2N/CCD Import WBC # Bld Auto 11.7 High 3.1- 10.7 Drugs Of 09/06/2016 [facility] Amphetamines Negative Abuse-Urine (315)- - (Urine) Screen 7 Barbiturates (Urine) Negative Benzodiazepines (Urine) Negative Cannabinoids (Urine) Negative Cocaine Metabolite (Urine) Negative Methadone (Urine) Negative Opiates (Urine) Negative Urine Cutoffs * 35 Ua RFX Micro & 09/06/2016 [facility] Urine Color YELLOW Yellow Culture II (315)- - Urine Clarity CLEAR Clear Urine Glucose - Dipstick NEGATIVE mg/dL Negative Urine Bilirubin - Dipstick NEGATIVE Negative Urine Ketone NEGATIVE mg/dL Negative Urine Specific [place] 1.010 N 1.010-1.030 Urine Blood NEGATIVE Negative Urine PH 8.0 High 6.5-7.5 Urine Protein - Dipstick NEGATIVE mg/dL Negative Urine Urobilinogen - Dipstick 0.2 E.U./dL N 0.2-1.0 Urine Nitrite - Dipstick NEGATIVE Negative Urine Leuk Esterase NEGATIVE Negative Source: URINE, CLEAN CAT <SEE NOTE> 36 Chlamydia/GC Cristina, 09/06/2016 [facility] Chlamydia Negative Negative Urine (315)- - Trachomatis,Ur -Cristina Neisseria Gonorrhoeae,Ur -Cristina Negative Negative 37 Urine methadone 09/06/2016 N2N/CCD Import Urine methadone Negative screen screen Urine hemoglobin 09/06/2016 N2N/CCD Import Urine hemoglobin Negative Negative detection by detection by automated test automated test strip strip Urine glucose 09/06/2016 N2N/CCD Import Urine glucose Negative Negative measurement by measurement by automated test automated test strip strip (mass/volume) Urine cocaine 09/06/2016 N2N/CCD Import Urine cocaine Negative metabolite screen metabolite screen Urine cannabinoids 09/06/2016 N2N/CCD Import Urine cannabinoids Negative detection by detection by screening method screening method Urine 09/06/2016 N2N/CCD Import Urine Negative benzodiazepines benzodiazepines measurement by measurement by screening met screening method (mass/volume) Urine barbiturate 09/06/2016 N2N/CCD Import Urine barbiturate Negative screening test screening test Urine appearance 09/06/2016 N2N/CCD Import Urine appearance Clear Clear determination determination Urine amphetamines 09/06/2016 N2N/CCD Import Urine amphetamines Negative detection by detection by screening method screening method Specific gravity 09/06/2016 N2N/CCD Import Specific gravity 1.010 1.010- 1.0 of Urine by of Urine by 30 Automated test Automated test strip strip Prot Ur 09/06/2016 N2N/CCD Import Prot Ur Negative Negative Strip.auto-mCnc Strip.auto-mCnc Nitrite Ur Ql 09/06/2016 N2N/CCD Import Nitrite Ur Ql Negative Negative Strip.auto Strip.auto Leukocyte esterase 09/06/2016 N2N/CCD Import Leukocyte esterase Negative Negative Ur Ql Strip.auto Ur Ql Strip.auto Ketones Ur 09/06/2016 N2N/CCD Import Ketones Ur Negative Negative Strip.auto-mCnc Strip.auto-mCnc Drug screen 09/06/2016 N2N/CCD Import Drug screen * comment comment [Interpretation] [Interpretation] in Urine in Urine Color Ur 09/06/2016 N2N/CCD Import Color Ur Yellow Yellow Bilirub Ur Ql 09/06/2016 N2N/CCD Import Bilirub Ur Ql Negative Negative Strip.auto Strip.auto Globulin Ser 09/06/2016 N2N/CCD Import Globulin Ser 4.3 1.9-4.3 Calc-mCnc Calc-mCnc Creat SerPl-mCnc 09/06/2016 N2N/CCD Import Creat SerPl-mCnc 0.8 0.6-1.3 Chloride 09/06/2016 N2N/CCD Import Chloride 106 98-107 SerPl-sCnc SerPl-sCnc Calcium SerPl-mCnc 09/06/2016 N2N/CCD Import Calcium SerPl-mCnc 8.6 8.5- 10.1 Co2 SerPl-sCnc 09/06/2016 N2N/CCD Import Co2 SerPl-sCnc 25 21-32 Bilirub SerPl-mCnc 09/06/2016 N2N/CCD Import Bilirub SerPl-mCnc 0.7 0.2- 1.0 BUN/Creat SerPl 09/06/2016 N2N/CCD Import BUN/Creat SerPl 20.0 BUN SerPl-mCnc 09/06/2016 N2N/CCD Import BUN SerPl-mCnc 16 7-18 Urine opiates 09/06/2016 N2N/CCD Import Urine opiates Negative detection by detection by screening method screening method Urobilinogen Ur 09/06/2016 N2N/CCD Import Urobilinogen Ur 0.2 0.2-1.0 Strip-aCnc Strip-aCnc pH Ur Strip.auto 09/06/2016 N2N/CCD Import pH Ur Strip.auto 8.0 High 6.5- 7.5 Alp SerPl-cCnc 09/06/2016 N2N/CCD Import Alp SerPl-cCnc 60 45-117 Alt SerPl-cCnc 09/06/2016 N2N/CCD Import Alt SerPl-cCnc 73 12-78 Aspartate 09/06/2016 N2N/CCD Import Aspartate 44 High 15-37 aminotransferase aminotransferase [Enzymatic [Enzymatic activity/vol activity/volume] in Serum or Plasma Anion Gap 09/06/2016 N2N/CCD Import Anion Gap 8 8-16 SerPl-sCnc SerPl-sCnc Albumin/Glob SerPl 09/06/2016 N2N/CCD Import Albumin/Glob SerPl 0.9 Albumin SerPl-mCnc 09/06/2016 N2N/CCD Import Albumin SerPl-mCnc 3.8 3.4- 5.0 Laboratory test 01/17/2016 [facility] Urine HCG NEGATIVE N Negative 38, finding (315)- - (Qualitative) 39 Urine Screen 09/06/2013 N2N/CCD Import Urine Bilirubin - Small High Negative Dipstick Urine Blood Negative Negative Urine Clarity Clear Clear Urine Color Yellow Yellow Urine Glucose - Dipstick Negative mg/dL Negative Urine Ketone Trace mg/dL High Negative Urine Leuk Esterase Negative Negative Urine Nitrite - Dipstick Negative Negative Urine PH 6.0 Low 6.5-7.5 Urine Protein - Dipstick Negative mg/dL Negative Urine Specific [place] >=1.030 1.010-1.030 Urine Urobilinogen - Dipstick 0.2 [...] Mean Platelet Volume 12.6 fL High 8.9-12.4 [place] # 0.61 K/uL 0.3-0.9 [place] % 8.4 % 4.3-13.2 Neut# 4.89 K/uL 1.0-7.0 Neut% 67.2 % 40.4-72.8 Platelet Count 172 K/uL 155-360 Red Blood Count 4.72 M/uL 3.90-5.40 Red Cell Distri Width %CV 13.1 % 11.7-14.4 Red Cell Distri Width SD 39.6 fl 3-47 White Blood Count 7.3 K/uL 3.1-10.7 Laboratory test finding 09/06/2013 N2N/CCD Import Alb/Glob 0.9 ratio Albumin 3.8 g/dL [...] Serum, Qualitative Negative If >60 mL/min >60 40 Lipase 47 U/L 28-380 Potassium 3.6 mmol/L 3.5-5.1 SGPT/Alt 53 U/L 30-65 Sgot/Ast 28 U/L 16-40 Sodium 136 mmol/L 136-145 Total Protein 8.1 g/dL High 6.3-8.0 Laboratory test 07/14/2013 N2N/CCD Import Urine HCG Negative Negative 41 finding (Qualitative) Protime 03/25/2013 N2N/CCD Import Inr 1.0 0.9-1.1 42 Protime 12.8 s 12.0-14.4 Laboratory test finding 03/25/2013 N2N/CCD Import Alb/Glob 1.0 ratio Albumin 4.0 g/dL 3.5-5.0 Alkaline Phosphatase 69 [...] 14.4 gm/dL 11.6-15.8 If >60 mL/min >60 43 Lymph # 2.69 K/uL 0.8-3.4 Lymph % 34.5 % 17.0-46.1 Mean Cell Volume 86.4 fl 80.9-99.0 Mean Corpuscular HGB 29.8 pg 25.9-32.7 Mean Corpuscular HGB Conc 34.4 g/dL High 30.8-34.3 Mean Platelet Volume 12.4 fL 8.9-12.4 [place] # 0.63 K/uL 0.3-0.9 [place] % 8.1 % 4.3-13.2 Neut# 4.47 K/uL [...] 6.3-8.0 White Blood Count 7.8 K/uL 3.1-10.7 Laboratory test finding 03/23/2013 N2N/CCD Import Urine Bacteria Few None Seen Urine Bilirubin - Dipstick Negative Negative Urine Blood Large High Negative Urine Clarity Cloudy Clear Urine Color Red Yellow Urine Culture See Note 44 Urine Epithelial Cells Few None Seen /lpf Urine Glucose - Dipstick Negative mg/dL Negative Urine Ketone Trace mg/dL High Negative Urine Leuk Esterase Trace High Negative Urine Nitrite - Dipstick Negative Negative Urine PH 5.5 Low 6.5-7.5 Urine Protein - Dipstick 100 mg/dL High Negative Urine RBC TNTC rbc/hpf High 0-7 Urine Screen See Note 45 Urine Specific [place] >=1.030 1.010-1.030 Urine Urobilinogen - Dipstick 0.2 E.U./dL 0.2-1.0 Urine WBC 5-10 wbc/hpf 0-7 Appearance (Tube 1) Clear Appearance (Tube 4) Clear CSF Culture See Note 46 CSF Glucose 56 mg/dL 50-75 CSF Lymphs [...] (Tube 4) Colorless Gram Stain See Note 47 Alb/Glob 0.9 ratio Albumin 4.3 g/dL 3.5-5.0 [...] 85 mg/dL 76-115 If >60 mL/min >60 48 Potassium 3.5 mmol/L 3.5-5.1 SGPT/Alt 61 U/L [...] 30.8-34.3 Mean Platelet Volume 12.4 fL 8.9-12.4 [place] # 0.89 K/uL 0.3-0.9 [place] % 13.7 % High 4.3-13.2 Neut# 4.00 K/uL 1.0-7.0 Neut% 61.7 % 40.4-72.8 Platelet Count 181 K/uL 155-360 Red Blood Count 4.95 M/uL 3.90-5.40 Red Cell Distri Width %CV 12.9 % 11.7-14.4 Red Cell Distri Width SD 39.3 fl 3-47 White Blood Count 6.5 K/uL 3.1-10.7 Laboratory test finding 12/29/2012 N2N/CCD Import [id number] See Note 49 Laboratory test finding 12/27/2012 N2N/CCD Import Alb/Glob [...] 14.2 gm/dL 11.6-15.8 If >60 mL/min >60 50 Lymph # 3.52 K/uL High 0.8-3.4 Lymph % 35.3 % 17.0-46.1 Mean Cell Volume 86.9 fl 80.9-99.0 Mean Corpuscular HGB 30.0 pg 25.9-32.7 Mean Corpuscular HGB Conc 34.5 g/dL High 30.8-34.3 Mean Platelet Volume 11.9 fL 8.9-12.4 [place] # 0.76 K/uL 0.3-0.9 [place] % 7.6 % 4.3-13.2 Neut# 5.34 K/uL 1.0-7.0 Neut% 53.7 % 40.4-72.8 Platelet Count 230 K/uL 155-360 Potassium 3.9 mmol/L 3.5-5.1 Red Blood Count 4.73 M/uL 3.90-5.40 Red Cell Distri Width %CV 12.6 % 11.7-14.4 Red Cell Distri Width SD 39.0 fl 3-47 SGPT/Alt 52 U/L 30-65 Sgot/Ast 32 U/L 16-40 Sodium 138 mmol/L 136-145 Thyroid Stim Hormone 3.52 uIU/mL 0.49-4.67 51 Total Protein 7.8 g/dL 6.3-8.0 Vitamin D,1,25 Dihydroxy 31.7 pg/mL 10.0-75.0 52 White Blood Count 10.0 K/uL 3.1-10.7 LDL Cholesterol Profile 12/27/2012 N2N/CCD Import Cholesterol 149 mg/dL 120-200 HDL Cholesterol 23 mg/dL Low 29-83 LDL-Cholesterol 70 mg/dL 62-185 Triglycerides 280 mg/dL High 16-231 Laboratory test 08/12/2012 N2N/CCD Import Tonsillectomy See Note 53 finding Laboratory test 08/06/2012 N2N/CCD Import Culture If Indicated See Note 54 finding Comment HCG Serum, Qualitative Negative Hematocrit [...] Color Yellow Yellow Urine Culture See Note 55 Urine Epithelial Cells Moderate None Seen /lpf 56 Urine Glucose - Dipstick Negative mg/dL Negative Urine Ketone Negative mg/dL Negative Urine Leuk Esterase Small High Negative Urine Nitrite - Dipstick Negative Negative Urine PH 5.5 Low 6.5-7.5 Urine Protein - Dipstick Negative mg/dL Negative Urine RBC None Seen rbc/hpf 0-7 Urine Screen See Note 57 Urine Specific [place] 1.020 1.010-1.030 Urine Urobilinogen - Dipstick 0.2 E.U./dL 0.2-1.0 Urine WBC 10-20 wbc/hpf High 0-7 White Blood Count 9.0 K/uL 3.1-10.7 1 Microbiology results SOURCE Random urine FINAL RESULT Mixed urogenital kathryn consistent with contamination. Request fresh specimen if indicated. 2 Interpretation: <0.5 -9 IU/ml Negative 10-15 IU/ml Equivocal >15.0 IU/ml Positive 3 Updated reference range on new analyzer 4 Updated reference range on new analyzer 5 Updated Reference Range 6 Concerning GFR Guidelines for Americans: Normal function or mild renal disease, if clinically at risk: >/=60 mL/min Moderately decreased: 30-59 Severely decreased: 15-29 Renal failure: <15 7 Concerning GFR Guidelines: Normal function or mild [...] drugs that are excreted by the kidneys. 8 New Assay and Reference Range in use 10/26/17. 9 Unless otherwise specified, testing performed by [facility] [address] [address] 10 THROWING UP, DIZZY 11 URINE, CLEAN CATCH 12 Note: Persistent reduction for 3 months or more in an eGFR <60 mL/min/1.73 m2 defines CKD. Patients with eGFR values >/=60 mL/min/1.73 m2 may also have CKD if evidence of persistent proteinuria is present. The original MDRD equation for estimated GFR is not valid for patients less than 18 years of age. Additional information may be found at [email or web address]. 13 Method: Quidel QuickVue One-Step Immunoassay 14 Updated reference range on new analyzer 15 Updated reference range on new analyzer 16 Concerning GFR Guidelines for Americans: Normal function or mild renal disease, if clinically at risk: >/=60 mL/min Moderately decreased: 30-59 Severely decreased: 15-29 Renal failure: <15 17 Concerning GFR Guidelines: Normal function or mild [...] drugs that are excreted by the kidneys. 18 Updated Reference Range 19 Clinical Guidelines for recommended serum 25(OH)Vitamin D Deficient at less than 20 ng/mL Insufficient at 20 to <30 ng/mL Sufficient at 30-100 ng/mL Toxicity at greater than 100 ng/mL 20 May indicate a current or previous infection. Unless otherwise specified, testing performed [place] [address] 21 May indicate a current or previous infection. Unless otherwise specified, testing performed [place] [address] 22 Unless otherwise specified, testing performed [place] [address] 23 May indicate a current or previous infection. Unless otherwise specified, testing performed by [facility] [address] [place] [address] 24 Updated reference range on new analyzer 25 Updated reference range on new analyzer 26 Concerning GFR Guidelines for Americans: Normal function or mild renal disease, if clinically at risk: >/=60 mL/min Moderately decreased: 30-59 Severely decreased: 15-29 Renal failure: <15 27 Concerning GFR Guidelines: Normal function or mild [...] drugs that are excreted by the kidneys. 28 Updated Reference Range -2017 29 Per NCEP ATP III Guidelines: Results lower than 40 mg/dL are suggestive of increased risk for coronary artery disease. Results > or=to 60 mg/dL are considered a negative risk factor. 30 Per NCEP ATP III Guidelines: Normal Population <130 Patients with medical conditions: CHD/DM Optimal: <100 Borderline high: 130-159 High: 160-189 Very high: >189 31 Clinical Guidelines for recommended serum 25(OH)Vitamin D Deficient at less than 20 ng/mL Insufficient at 20 to <30 ng/mL Sufficient at 30-100 ng/mL Toxicity at greater than 100 ng/mL 32 MIGRAINE, VOMITING, DIARRHEA, ABD 33 Method: Mobile-XLue One-Step Immunoassay 34 Instrument flagged sample for slide review. Less than 10% Bands seen, no other immature WBC's seen. RBC morphology essentially normal. Platelet estimate= Normal 35 URINE SPECIMENS ARE SCREENED AT THE LISTED CUTOFFS DRUG CLASS INITIAL TEST LEVEL Amphetamines 1000 ng/mL Barbiturates 200 ng/mL Benzodiazepines 200 ng/mL Cannabinoids 50 ng/mL Cocaine Metabolite 300 ng/mL Methadone 300 ng/mL Opiates 300 ng/mL Any PRESUMPTIVE POSITIVE findings are UNCONFIRMED. Confirmatory testing is suggested if findings are unexpected. Please contact laboratory if confirmatory testing is desired. SPECIMENS ARE HELD FOR 72 HOURS. 36 URINE, CLEAN CATCH 37 A negative result for either C. trachomatis and/or N. gonorrhoeae does not preclued an infection because results are dependent on adequate specimen collection, absence of inhibitors, and sufficient DNA to be detected. 38 CONSULT 01/14 62683 N92.6 39 FIRST MORNING SPECIMENS GENERALLY CONTAIN THE HIGHEST CONCENTRATION OF HCG AND ARE RECOMMENDED FOR EARLY DETECTION OF . 40 Note: Persistent reduction for 3 months or more in an eGFR <60 mL/min/1.73 m2 defines CKD. Patients with eGFR values >/=60 mL/min/1.73 m2 may also have CKD if evidence of persistent proteinuria is present. The original MDRD equation for estimated GFR is not valid for patients less than 18 years of age. Additional information may be found at www.[email or web address]. 41 FIRST MORNING SPECIMENS GENERALLY CONTAIN THE HIGHEST CONCENTRATION OF HCG AND ARE RECOMMENDED FOR EARLY DETECTION OF . 42 THERAPEUTIC INR RANGE: 2.0 - 3.0 DVT, Pulmonary embolus, prophylaxis against venous thrombosis or systemic embolization in high risk patients. 2.5 - 3.5 Mechanical heart valves 43 Note: Persistent reduction for 3 months or more in an eGFR <60 mL/min/1.73 m2 defines CKD. Patients with eGFR values >/=60 mL/min/1.73 m2 may also have CKD if evidence of persistent proteinuria is present. The original MDRD equation for estimated GFR is not valid for patients less than 18 years of age. Additional information may be found at www.[email or web address]. 44 COLONY COUNT ! 10,000 - 20,000 CFU/ml Organism 1 ! URETHRAL KATHRYN ANAEROBIC BLOOD CULTURE DRAWN WITH OTHER SET. 45 03/23/13 LAB.MPK Deleted by [facility] 46 NO GROWTH: FINAL REPORT 47 GRAM STAIN ! NO ORGANISMS SEEN 48 Note: Persistent reduction for 3 months or more in an eGFR <60 mL/min/1.73 m2 defines CKD. Patients with eGFR values >/=60 mL/min/1.73 m2 may also have CKD if evidence of persistent proteinuria is present. The original MDRD equation for estimated GFR is not valid for patients less than 18 years of age. Additional information may be found at www.[email or web address]. 49 [facility] [address], [address] [place] [address] CYTOLOGY REPORT Name: Leisa Blackburn : 1985 (Age: 27) Sex: F Location: [facility] Med. Rec. # [id number] Date Collected: 12/29/2012 Billing #: [id number] Date Received: 12/29/2012 Requisition # [id number] Physician(s): DAMI VALDIVIA MD Source of Specimen: ENDOCERVICAL/THIN PREP Clinical Information: Date of Last Menstrual Period: 11/25/12 Menstrual History: Irregular Specimen Adequacy: SATISFACTORY FOR EVALUATION. ADEQUATE ENDOCERVICAL/TRANSFORMATION ZONE. General Categorization : NEGATIVE FOR INTRAEPITHELIAL LESION OR MALIGNANCY. kf Electronic Signature DEBBI Lacey (ASCP) Reported: 12/31/2012 [facility] HPV High Risk Date Ordered: 12/30/2012 Status: Signed Out Date Reported: 01/03/2013 High Risk NEGATIVE (HPV types 16, 18, 31, 33, 35, 39, 45, 51, 52, 56, 58, 59, 66, 68) [facility] HPV HR Electronic Signature Lety Cr [place] [facility] ICD-9 Code(s) V72.31 50 Note: Persistent reduction for 3 months or more in an eGFR <60 mL/min/1.73 m2 defines CKD. Patients with eGFR values >/=60 mL/min/1.73 m2 may also have CKD if evidence of persistent proteinuria is present. The original MDRD equation for estimated GFR is not valid for patients less than 18 years of age. Additional information may be found at [email or web address]. 51 Specimen slightly Hemolyzed, interpret with caution 52 Performed at: [address] [id number] Equipment Maintenance Tech: Travis Osborne MD, Phone: [phone] 53 OPERATION/PROCEDURE T+A DIAGNOSIS: PARTS 1 \\E&E\\ 2: "RIGHT AND LEFT TONSILS , TONSILLECTOMY": CHRONIC TONSILLITIS. ACTINOMYCETES COLONIZATION. JAMESON/aaliyah GROSS Part 1: The specimen is received in a single container additionally labeled "R TONSIL" is a mucosal covered grossly recognizable tonsil overall measuring 3.4 x 2.3 x 1.2 cm. The gross cut surface fails to reveal the presence of focal abnormalities. The cut surface reveals only the presence of normal appearing clefts and lymphoid parenchyma. Rotary Rock Drilling Machine Operator sections are submitted in one cassette. Part 2: The specimen is received in a single container additionally labeled "L TONSIL" is a mucosal covered grossly recognizable tonsil overall measuring 3.1 x 2.1 x 1.2 cm. The gross cut surface fails to reveal the presence of focal abnormalities. The cut surface reveals only the presence of normal appearing clefts and lymphoid parenchyma. Rotary Rock Drilling Machine Operator sections are submitted in one cassette. JAMESON/aaliyah MICROSCOPIC Part 1 \\E&E\\ 2: Sections from both tonsils reveal squamous mucosa overlying follicular hyperplastic lymphoid tonsillar tissue. 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 PRE OPERATIVE DIAGNOSIS Hypertrophy tonsils REVIEW CODE CODE: I ----- KORIN Ruffin MD 08/16/12 1406 ----- 54 CULTURE TO FOLLOW 55 COLONY COUNT ! 20,000-30,000 CFU/ml Organism 1 ! MIXED URETHRAL KATHRYN 56 POSSIBLE UROGENITAL CONTAMINATION. 57 08/06/12 LAB.EMM1 [email or web address] Procedures Date Code Description Status 2018 58761 Measure Blood Oxygen Level Single Determination Completed 05/24/2018 02751 Measure Blood Oxygen Level Single Determination Completed 05/14/2018 41711 Measure Blood Oxygen Level Single Determination Completed 04/05/2018 52162 Measure Blood Oxygen Level Single Determination Completed 10/29/2017 94350 Visual Screening Test Completed Encounters Type Date Location Provider Dx Diagnosis Office Visit 08/24/2018 [facility] Dari Cid J45.901 Unspecified asthma 10:45a PA with (acute) exacerbation M79.606 Pain in leg, unspecified Office Visit 2018 10:30a Dari Kaplan PA J45.901 Unspecified asthma with (acute) exacerbation Z68.41 Body mass index (BMI) 40.0-44.9, adult Office Visit 07/29/2018 10:00a [facility] Dari Cid PA Z00.00 Encntr for general adult medical exam w/o abnormal findings R30.0 Dysuria M79.606 Pain in leg, unspecified M79.646 Pain in unspecified finger(s) R19.7 Diarrhea, unspecified Z13.31 Encounter for screening for depression Z68.41 Body mass index (BMI) 40.0-44.9, adult Office Visit 07/07/2018 4:00p Dari Kaplan PA J06.9 Acute upper respiratory infection, unspecified M79.606 Pain in leg, unspecified M79.646 Pain in unspecified finger(s) Z68.41 Body mass index (BMI) 40.0-44.9, adult Office Visit 06/21/2018 10:30a Dari Kaplan PA H66.92 Otitis media , unspecified, LEFT ear K12.0 Recurrent oral aphthae R59.0 Localized enlarged lymph nodes Z68.41 Body mass index (BMI) 40.0-44.9, adult Office Visit 06/18/2018 8:00a Dari Kaplan PA M79.606 Pain in leg , unspecified M79.646 Pain in unspecified finger(s) M54.6 Pain in thoracic spine Office Visit 06/04/2018 9:30a Dari Kaplan PA K76.0 Fatty ( change of) liver, not elsewhere classified R11.2 Nausea with vomiting, unspecified Office Visit 05/24/2018 2:30p Dari Kaplan PA R05 Cough Office Visit 05/14/2018 9:00a Dari Kaplan PA J20.9 Acute bronchitis, unspecified Z87.09 Personal history of other diseases of the respiratory system Z68.41 Body mass index (BMI) 40.0-44.9, adult Office Visit 04/05/2018 4:00p Dari Kaplan PA 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 J45.20 Mild intermittent asthma, uncomplicated Z68.41 Body mass index (BMI) 40.0-44.9, adult Office Visit 10/29/2017 10:45a Dari Kaplan H10.31 Unspecified acute PA conjunctivitis, RIGHT eye Z68.41 Body mass index (BMI) 40.0-44.9, adult Office Visit 07/28/2017 8:30a Dari Kaplan PA Z00.00 Encntr for general adult medical exam w/o abnormal findings R53.83 Other fatigue M25.571 Pain in RIGHT ankle and joints of RIGHT foot Office Visit 01/23/2015 8:30a [facility] Sherri Valdivia, S92.535A Nondisp fx of FLUE CLEANER distal phalanx of LEFT lesser toe(s), init Z68.41 Body mass index (BMI) 40.0-44.9, adult Office Visit 05/24/2014 3:15p [facility] Sherri Valdivia, FLUE CLEANER 844.9 Sprains & Strains Knee & Leg Unspec Office Visit 05/15/2014 3:30p [facility] Sherri Valdivia, FLUE CLEANER 844.9 Sprains & Strains Knee & Leg Unspec Plan of Treatment Future Appointment(s):08/02/2019 8:30 am - Dari Cid PA at [facility]2018 - Dari Cid, PAM25.511 Pain in RIGHT shoulderNew Orders:Physical Therapy, Ordered: 09/22/18Comments:? RC tendinitisWill try PTCan try naproxenCall with worsening/persisting symptomsFollow up:PrnM25.561 Pain in RIGHT kneeComments:Suspect pattelofemoral syndromeSuggest naproxenWill try PTCall with worsening/persisting doandwsdU14.571 Pain in RIGHT ankle and joints of RIGHT footComments:Pain/weakness in R ankle Will try naproxenCan also try wrap on ankleWill refer for PTCall with worsening/persisting rlnoiwghH27.41 Body mass index (BMI) 40.0-44.9, adult
[2018-09-23 14:30] VITALS: BP 115/68
--- NOTE | 2018-09-23 15:25 | UC ---
Knee Pain HPI - HPI Summary HPI Summary: Pt presents with c/o sudden onset of right knee pain that began yesterday while walking dog and "got twisted " with doge and heard a loud "POP" and sudden onset of pain in right knee. Pt states her knee was swollen and is painful with weight bearing, flexion and extension. She states that it feels like it "catches " while ambulating. - History of Current Complaint Chief Complaint: UCLowerExtremity Stated Complaint: RT KNEE INJURY Time Seen by Provider: 09/23/18 14:27 Hx Obtained From: Patient Hx Last Menstrual Period: 09/06/18 ?: No Onset/Duration: Sudden Onset, Lasting Days, Still Present Severity Initially: Moderate Severity Currently: Moderate Pain Intensity: 6 Character: Dull, Aching, Stiffness Aggravating Factor(s): Movement, Weight Bearing, Prolonged Standing, Stairs Alleviating Factor(s): Rest, Position, OTC Meds Associated Signs And Symptoms: Positive: Swelling Able to Bear Weight: Yes - Risk Factors Septic Arthritis Risk Factor: Negative Gout Risk Factor: Obesity - Allergies/Home Medications Allergies/Adverse Reactions: Allergies Allergy/AdvReac Type Severity Reaction Status Date / Time aspirin Allergy Severe Bleeding Verified 09/23/18 14:31 Penicillins Allergy Severe Bleeding Verified 09/23/18 14:31 pineapple Allergy Severe tongue Verified 09/23/18 14:31 swelling, itching promethazine Allergy Severe Hallucinati Verified 09/23/18 14:31 ons Cold Allergy Severe Hives Uncoded 09/23/18 14:31 mustard seed Allergy Severe tongue Uncoded 09/23/18 14:31 swelling, itching Home Medications: Home Medications Gabapentin CAP(*) [Neurontin 100 mg CAP(*)] 100 mg PO BEDTIME 09/23/18 [History Confirmed 09/23/18] Ibuprofen TAB* [Motrin TAB* 800 MG] 800 mg PO ONCE PRN 09/23/18 [History Confirmed 09/23/18] PMH/Surg Hx/FS Hx/Imm Hx Previously Healthy: Yes - Surgical History Surgical History: Yes Surgery Procedure, Year, and Place: T&A, 07/14/13 polypectomy, D&C x3. LEFT wrist /LEFT elbow/LEFT carpal tunnel - Family History Known Family History: Positive: None, Hypertension Negative: Unknown, Cardiac Disease, Diabetes - Social History Occupation: Employed Full-time Lives: With Family Alcohol Use: Rare Substance Use Type: None Smoking Status (MU): Never Smoked Tobacco Have You Smoked in the Last Year: No Household Exposure Type: Cigarettes - Immunization History Most Recent Influenza Vaccination: Not the Season Vaccination Up to Date: No Review of Systems All Other Systems Reviewed And Are Negative: Yes Constitutional: Positive: Negative Skin: Positive: Negative Eyes: Positive: Negative ENT: Positive: Negative Respiratory: Positive: Negative Cardiovascular: Positive: Negative Gastrointestinal: Positive: Negative Genitourinary: Positive: Negative Motor: Positive: Decreased ROM - right knee, painful ROM Neurovascular: Positive: Negative Musculoskeletal: Positive: Arthralgia, Decreased ROM - pain with ROM, Edema, Myalgia Neurological: Positive: Negative Psychological: Positive: Negative Is Patient Immunocompromised?: No Physical Exam Triage Information Reviewed: Yes Appearance: Well-Appearing Vital Signs: Initial Vital Signs Temp 98.5 F 09/23/18 14:27 Pulse 99 09/23/18 14:27 Resp 16 09/23/18 14:27 BP 115/68 09/23/18 14:27 Pulse Ox 100 09/23/18 14:27 Vital Signs Reviewed: Yes Eye Exam: Normal ENT Exam: Normal Dental Exam: Normal Neck exam: Normal Respiratory: Positive: No respiratory distress Musculoskeletal: Positive: ROM Limited @ - secondary to pain Neurological Exam: Normal Psychological Exam: Normal Skin Exam: Normal Diagnostics - Radiology No standard instances Radiology Interpretation Completed By: Radiologist - IMPRESSION: #. Very mild osteoarthritis. #. Small joint effusion. #. Negative for fracture. Knee Pain Course/Dx - Course Course Of Treatment: I discussed with the pt the radiology report and recommended that she follow up with an orthopedic provider - Differential Dx/Diagnosis Differential Diagnosis/HQI/PQRI: Fracture (Closed), Sprain, Strain Provider Diagnosis: Right knee sprain Discharge - Sign-Out/Discharge Documenting (check all that apply): Patient Departure All imaging exams completed and their final reports reviewed: Yes - Discharge Plan Condition: Stable Disposition: HOME Patient Education Materials: Knee Sprain (ED), Safe Use of NSAIDs (ED) Referrals: Dari Cid PA [Primary Care Provider] - If Needed Leonid Montero MD [Medical Doctor] - As Soon As Possible - Billing Disposition and Condition Condition: STABLE Disposition: Home
== END 2018-09-23 16:02 | disposition home or self-care (01) ==
LOC: UCCORT 13:53
DX: S83.91XA Sprain of unspecified site of right knee, initial encounter (principal); Y93.K1 Activity, walking an animal; Y92.9 Unspecified place or not applicable
CPT/HCPCS: 99211; G0463